=== PATIENT | female | born 1940 | race Caucasian/White ===

== ENCOUNTER 2018-03-10 21:31 | Observation (INO) ==
[2018-03-11 04:37] LABS: Hematocrit 29.8 % (35.3-44.9); Hemoglobin 9.4 g/dL (11.5-15.4); Mean Corpuscular HGB Conc 31.5 g/dL (31.6-35.5); Mean Corpuscular Hemoglobin 32.1 pg (28.0-33.3); Mean Corpuscular Volume 101.7 fL (83.0-100.0); Mean Platelet Volume 11.8 fL (9.4-12.4); Platelet Count 125 K/mcL (140-400); Red Blood Count 2.93 M/mcL (3.82-4.97); Red Cell Distribution Width 14.8 % (11.5-14.5)
[2018-03-11 04:54] LABS: Albumin 3.4 g/dL (3.5-5.7); Albumin/Globulin Ratio 1.1 (1.1-2.2); Bilirubin,Total 0.9 mg/dL (0.3-1.0); Calcium 8.9 mg/dL (8.6-10.3); Globulin 3.1 g/dL (2.4-3.5); Potassium 4.9 mEq/L (3.5-5.1); Total Protein 6.5 g/dL (6.4-8.9)
[2018-03-11] MEDS ORDERED: Naloxone 0.4 MG/ML INJ IVP PRN (06:33)
[2018-03-11] MEDS ORDERED: *HR* Dextrose 50 % in Water (Syg) 50 ML SYRINGE IVP PRN (06:38)
[2018-03-11] MEDS ORDERED: Dextrose Gel 15 GM/37.5 ML TUBE PO PRN ×2 (06:38)
[2018-03-11] MEDS ORDERED: D5% in Water 1,000 ML IVC PRN (06:38)
[2018-03-11 06:59] LABS: Phosphorous 5.3 mg/dL (2.7-4.5)
--- NOTE | 2018-03-11 08:54 | Internal Med History&Physical ---
Date of Encounter: 03/11/18 Time of Encounter: 05:23 Internal Medicine - H&P: HPI Chief complaint: UTI, ESRD Admitted From: Emergency Dept Plans for Post Hospital Care: Home History of present illness: Ms. Villavicencio is a 77 year old female Patient presented to the [facility] with chills and feeling ill. She had been told that if she ever felt this way that she should come to the ER to be evaluated. Her symptoms started in the early afternoon, and did not improve. She has had similar symptoms when she has UTIs, so she wanted to be evaluated. In the ER she was noted to have a temperature of 101.2, patient's white count was elevated to 13.0, hemoglobin was 10.1. BMP showed elevated blood sugar of 209. Troponin was also elevated at 0.08.Chest x-ray showed possible trace bilateral pleural effusions. UA showed bacteria, small leukocyte esterase, negative nitrites. Recent urine culture from 01/22/18 grew out klebsiella pneumoniae. EKG showed Afib with RVR, rate of 121. No ST changes noted. She was started on ceftriaxone, given a dose of tylenol and transferred to [facility] as [facility] does not have a dialysis unit. Upon my evaluation, patient states that she feels better now. She is on dialysis with upper left arm fistula access. She has had UTIs in the past, and still makes a small amount of urine. She denies nasuea, vomiting, chest pain, abdominal pain, diarrhea and constipation. She was noted to be in Afib at [facility] but this improved upon arrival here. Past Med Surg Social Fam HX - Past Medical History Medical history: arthritis, atrial fibrillation, cardiomyopathy, CHF, COPD, diabetes, dialysis, hyperlipidemia, hypertension, myocardial infarction, renal disease, thyroid disease Additional medical history: WEARS HOME 02 AT 2LPM VIA NC CONTINUOUS, , DIALYSIS -- , ALSO TO BE FLUID RESTRICTION 80UNCES OF FLUID DAILY Psychiatric history: no psych history - Past Surgical History Surgical History: angioplasty/stent, breast surgery, hysterectomy, other Additional surgical history: cyst removed left breast. left arm shunt - Social History Smoking Status: Never smoker Smokeless Tobacco Status: No Alcohol use: none Drug use: none - Family History Father Living Status: Hx Family Cardiac Disorders: Yes Hx Family Endocrine Disorder: Yes Mother Living Status: Hx Family Endocrine Disorder: Yes Internal Medicine - H&P: Meds Renal Vitamin [Renal Caps Softgel] 1 mg PO DAILY 12/04/14 [History] Sodium Bicarbonate 650 mg PO DAILY 10/03/16 [History] Vitamin B Complex Vit C No.4 [Super B Complex] 1 tab PO DAILY 10/03/16 [History] Promethazine [Phenergan] 12.5 mg PO Q6HR PRN 11/17/16 [History] Allopurinol [Zyloprim 100 MG] 100 mg PO DAILY 08/10/17 [History] Atorvastatin [Lipitor] 40 mg PO HS 08/10/17 [History] Folic Acid 0.8 mg PO DAILY 08/10/17 [History] Insulin DETEMIR [Levemir] 10 unit SQ DAILY 08/10/17 [History] Levothyroxine Sodium [Levoxyl] 100 mcg PO DAILY 08/10/17 [History] Pantoprazole Sodium [Protonix] 40 mg PO DAILY 08/10/17 [History] Aspirin Enteric Coated [Aspirin EC] 81 mg PO DAILY #30 tablet.dr 08/15/17 [Rx] Lidocaine Patch [Lidoderm 5% patch] 1 each TP DAILY #15 adh..patch 08/15/17 [Rx] Ondansetron HCl [Zofran] 4 mg PO Q8HR PRN #15 tablet 08/15/17 [Rx] Apixaban [Eliquis] 2.5 mg PO BID 01/22/18 [History] Allergy/AdvReac Type Severity Reaction Status Date / Time Amoxicillin [From Augmentin] AdvReac Vomiting Verified 03/10/18 19:50 clavulanic acid AdvReac Vomiting Verified 03/10/18 19:50 [From Augmentin] diphenhydramine AdvReac Hypotension Verified 03/10/18 21:31 [From Benadryl] All Systems PM: A 10-system review of systems was performed and is negative for pertinent find ings except as documented above in the HPI. - Constitutional Vitals: Temp Pulse Resp BP Pulse Ox 98.1 F 90 16 97/44 96 03/11/18 06:43 03/11/18 06:43 03/11/18 06:43 03/11/18 06:43 03/11/18 06:43 General appearance: Present: cooperative, A&O X 3, pleasant, no acute distress, answers questions appropriately Exam: As above - Head Head exam: Present: normal inspection - Eye Eye exam: Present: EOMI, normal appearance - Respiratory Respiratory exam: Present: CTAB. Absent: respiratory distress, wheezes - Cardiovascular Cardiovascular exam: Present: RRR. Absent: diastolic murmur, systolic murmur - GI/Abdominal GI/Abdominal exam: Present: normal bowel sounds, soft. Absent: tenderness - Extremities Exam Extremities exam: Present: pedal edema, warm, radial pulses palpable and symmetrical. Absent: calf tenderness, tenderness Additional comments: 1-2+ pitting edema bilaterally. - Back Exam Back exam: Present: CVA tenderness (L), CVA tenderness (R) - Neurological Exam Neurological exam: Present: no focal deficits, strengths equal and symetr throughout. Absent: motor sensory deficit, facial droop, speech deficit - Skin Skin exam: Present: dry, normal color, warm Internal Med - H&P Results - Labs CBC & Chem 7: 03/11/18 03:55 03/11/18 03:55 Labs: Short CBC 03/11/18 Range/Units 03:55 WBC 12.9 H (4.3-11.1) K/mcL Hgb 9.4 L (11.5-15.4) g/dL Hct 29.8 L (35.3-44.9) % Plt Count 125 L (140-400) K/mcL BMP 03/11/18 03:55 Sodium 135 L Potassium 4.9 Chloride 97 L Carbon Dioxide 26 BUN 35 H Creatinine 5.82 H Glucose 227 H Calcium 8.9 Cardiac Enzymes 03/11/18 Range/Units 03:55 Troponin I 0.08 H* (< 0.04) ng/mL Liver Function 03/11/18 Range/Units 03:55 Total Bilirubin 0.9 (0.3-1.0) mg/dL AST 32 (13-39) Units/L ALT 19 (7-52) Units/L Alkaline Phosphatase 159 H (34-104) Units/L Albumin 3.4 L (3.5-5.7) g/dL - Assessment and plan (1) Urinary tract infection Current Visit: No Status: Acute Assessment and plan: Some bacteria noted on UA but negative nitrites and small LEs. Patient does have bilateral CVA tenderness, and presents similar to her UTIs in the past. Follow up urine culture Continue antibiotics. Monitor for worsening signs of infection, fever and tachycardia resolved by arrival. Qualifiers: Urinary tract infection type: acute cystitis Hematuria presence: without hematuria Qualified Code(s): N30.00 - Acute cystitis without hematuria (2) Diabetes Current Visit: No Status: Chronic Assessment and plan: Low dose sliding scale insulin Monitor sugars with meals and at night Diabetic and renal diet Qualifiers: Diabetes mellitus type: type 2 Diabetes mellitus terminal block assembler insulin use: with terminal block assembler use Diabetes mellitus complication status: with kidney complications Diabetes mellitus complication detail: with chronic kidney disease Chronic kidney disease stage: on chronic dialysis Qualified Code(s): E11.22 - Type 2 diabetes mellitus with diabetic chronic kidney disease; N18.6 - End stage renal disease; Z79.4 - intermediate (current) use of insulin; Z99.2 - Dependence on renal dialysis (3) End-stage renal disease Current Visit: No Status: Chronic Assessment and plan: Nephrology consult to continue dialysis (4) DVT prophylaxis Current Visit: Yes Status: Acute Assessment and plan: SCDs - Time Spent With Patient Total time spent is greater than 50% in coordination of care (as documented) at patient's floor/unit and/or counseling patient: Greater than 35 minutes
[2018-03-11] MEDS ORDERED: Ondansetron 4 MG/2 ML VIAL IVP PRN (10:03)
[2018-03-11] MEDS: cefTRIAXone 1,000 MG in Water for inj. (sterile) 20 ML 10 ML IVP SCH (10:05)
[2018-03-11] MEDS: Insulin LISPRO 300 UNITS/3 ML VIAL SQ SCH ×4 (10:08→20:17)
--- NOTE | 2018-03-11 10:43 | Nephrology Consult Note ---
Date of Encounter: 03/11/18 Time of Encounter: 09:50 Assessment and Plan (1) End-stage renal disease Current Visit: No Status: Chronic Hx of ESRD on HD every MWF. Last HD was on Monday. I recommend no extra dialysis today (Monday), and to arrange HD for her in the AM. I will place dialysis orders on Monday, and my colleague Dr. Maher will be on-service starting at 0800. I will be happy to help consult on this pt, as her primary nephrology has no rou nding privileges at [facility]. Thank you. (2) Nausea Current Visit: Yes Status: Chronic She asked me to order her Zofran and the "purple pill" (Nexium or equivalent). History of Present Illness - Reason for Consult Consult date: 03/11/18 end stage renal disease Requesting physician: Ranulfo Amor - Chief Complaint She said she was "shaky" - History of Present Illness 77 y/o very pleasant 77 y/o WF with a pmh of ESRD on HD MWF and et al who presented with feelings of fatigue that she described as "shaky." Nephrology was consulted because she is an ESRD pt. She said she has been on dialysis for 2-3 years, at the private unit [facility] She said her prior supervisor [employer] retired and that she is not sure of who the current supervisor [employer], but since her new nephrology appears to have no rounding privileges at [facility], the [facility] group was consulted. She denied F/C/V/D, but did affirm some mild nausea and asked for the "purple pill." She said she completed her last dialysis on Monday. She is not sure of her dry weight or other dialysis details and these medical records are not immediately available to me. Past Med Surg Social Fam HX - Past Medical History Medical history: arthritis, atrial fibrillation, cardiomyopathy, CHF, COPD, diabetes, dialysis, hyperlipidemia, hypertension, myocardial infarction, renal disease, thyroid disease Additional medical history: WEARS HOME 02 AT 2LPM VIA NC CONTINUOUS, , DIALYSIS M-W- , ALSO TO BE FLUID RESTRICTION 80UNCES OF FLUID DAILY Psychiatric history: no psych history - Past Surgical History Surgical History: angioplasty/stent, breast surgery, hysterectomy, other Additional surgical history: cyst removed left breast. left arm shunt - Social History Smoking Status: Never smoker Smokeless Tobacco Status: No Alcohol use: none Drug use: none - Family History Father Living Status: Hx Family Cardiac Disorders: Yes Hx Family Endocrine Disorder: Yes Mother Living Status: Hx Family Endocrine Disorder: Yes Medications and Allergies Renal Vitamin [Renal Caps Softgel] 1 mg PO DAILY 12/04/14 [History] Sodium Bicarbonate 650 mg PO DAILY 10/03/16 [History] Vitamin B Complex Vit C No.4 [Super B Complex] 1 tab PO DAILY 10/03/16 [History] Promethazine [Phenergan] 12.5 mg PO Q6HR PRN 11/17/16 [History] Allopurinol [Zyloprim 100 MG] 100 mg PO DAILY 08/10/17 [History] Atorvastatin [Lipitor] 40 mg PO HS 08/10/17 [History] Folic Acid 0.8 mg PO DAILY 08/10/17 [History] Insulin DETEMIR [Levemir] 10 unit SQ DAILY 08/10/17 [History] Levothyroxine Sodium [Levoxyl] 100 mcg PO DAILY 08/10/17 [History] Pantoprazole Sodium [Protonix] 40 mg PO DAILY 08/10/17 [History] Aspirin Enteric Coated [Aspirin EC] 81 mg PO DAILY #30 tablet.dr 08/15/17 [Rx] Lidocaine Patch [Lidoderm 5% patch] 1 each TP DAILY #15 adh..patch 08/15/17 [Rx] Ondansetron HCl [Zofran] 4 mg PO Q8HR PRN #15 tablet 08/15/17 [Rx] Apixaban [Eliquis] 2.5 mg PO BID 01/22/18 [History] Allergy/AdvReac Type Severity Reaction Status Date / Time Amoxicillin [From Augmentin] AdvReac Vomiting Verified 03/10/18 19:50 clavulanic acid AdvReac Vomiting Verified 03/10/18 19:50 [From Augmentin] diphenhydramine AdvReac Hypotension Verified 03/10/18 21:31 [From Benadryl] Review of Systems All Systems: reviewed and no additional remarkable complaints except as stated Exam - Vital Signs Vital signs: Initial Vital Signs Temp Pulse Resp BP Pulse Ox 98.3 F 110 16 121/78 95 03/10/18 23:00 03/10/18 23:00 03/10/18 23:00 03/10/18 23:00 03/10/18 23:00 Vital Signs - Last 8 Hours Temp Pulse Resp BP Pulse Ox 03/11/18 06:43 98.1 F 90 16 97/44 96 03/11/18 04:00 98.4 F 95 16 88/50 94 Intake and Output 03/10/18 03/11/18 03/11/18 23:59 07:59 15:59 Other: Stool Size Small Stool Consistency soft Stool Color Brown # Voids 1 # Bowel Movement Diapers 1 Weight 106.1 kg Blood Glucose* 175 - General Appearance General appearance: well-developed, well-nourished, appears started age, obese EENT: ATNC, PERRL, mucous membranes moist Neck: supple Respiratory: clear Cardiology: no edema, irregular rhythm, normal S1, normal S2 - Dialysis Access Dialysis Vascular Access: Arteriovenous Fistula (left AVF) thrill: Yes bruit: Yes Gastrointestinal: normoactive bowel sounds, no tenderness, no guarding Integumentary: no rash, warm and dry Neurologic: no focal deficit, no asterixis, alert and oriented x3 Musculoskeletal: no deformities, no erythema Psychiatric: mood/affect appropriate, cooperative Results - Lab Results 03/13/18 03:43 03/13/18 03:43 Most recent lab results Calcium 8.9 mg/dL (8.6-10.3) 03/11/18 03:55 Phosphorus 5.3 mg/dL (2.7-4.5) H 03/11/18 03:55 Consult Discharge Plan - Plan Referrals: Isabel Morales [Primary Care Provider] - 04/03/18 4:00 pm (Please follow up as schedule...)
[2018-03-11] MEDS ORDERED: Promethazine 12.5 MG in 0.9 % Sodium Chloride 50 ML IVPB PRN (13:51)
--- NOTE | 2018-03-11 14:21 | Event Note ---
Date of Encounter: 03/11/18 Time of Encounter: 14:21 I have seen and evaluated the patient at bedside. Patient reports that she is feeling nauseated, denies chest pain, abdominal pain or shortness of breath. Physical exam: Vitals: Reviewed. General: Alert and oriented x4. In mild distress due to nausea. Skin:Normal color, no rash, no lesions. HEENT: EOM, pupils equal, round and reactive. Cardiovascular: Irregularly, irregular, Normal S1 & S2, no rubs, murmurs or gallops. Lungs: mild crackles at the bases b/l, no wheezes. Abdomen: Obese, Soft, non-tender, no rigidity. Extremities:No deformity, no edema. left upper extr HD fistula. Neurological: Normal cognition and motor skills. Rest of the physical exam is non contributory Assessment and Plan: 1. Hypotension possible due to sepsis 2. UTI 3. A.Fib 4. [place] zone troponin 5. ESRD 6. CHF 7. COPD 8. HTN 9. HLD 10. Hypothyroidism Plan: patient on IV antibiotics will resume home medications will continue to monitor ondansentron 4mg/IV Q4HR scheduled for nausea Patient needs close BP monitoring
[2018-03-11] MEDS ORDERED: *HR* Promethazine 25 MG/ML VIAL IVP PRN (15:23)
[2018-03-11] MEDS: Ondansetron 4 MG/2 ML VIAL IVP SCH ×2 (17:38→23:47)
[2018-03-11] MEDS: Apixaban 5 MG TABLET PO SCH (20:19)
[2018-03-12 03:11] LABS: Basophils # 0.1 K/mcL (0.0-0.2); Basophils % 0.8 %; Eosinophils # 0.5 K/mcL (0.0-0.6); Eosinophils % 7.3 %; Hematocrit 30.8 % (35.3-44.9); Hemoglobin 9.7 g/dL (11.5-15.4); Immature Granulocytes % 0.3 % (0-4); Lymphocytes # 0.6 K/mcL (0.6-4.6); Lymphocytes % 8.5 %; Mean Corpuscular HGB Conc 31.5 g/dL (31.6-35.5); Mean Corpuscular Hemoglobin 31.7 pg (28.0-33.3); Mean Corpuscular Volume 100.7 fL (83.0-100.0); Mean Platelet Volume 11.6 fL (9.4-12.4); Monocytes # 0.8 K/mcL (0.0-1.3); Monocytes % 10.6 %; Neutrophils # 5.3 K/mcL (1.6-8.9); Platelet Count 117 K/mcL (140-400); Red Blood Count 3.06 M/mcL (3.82-4.97); Segmented Neutrophils % 72.5 %
[2018-03-12 03:28] LABS: Calcium 8.9 mg/dL (8.6-10.3); Phosphorous 6.6 mg/dL (2.7-4.5); Potassium 5.4 mEq/L (3.5-5.1)
[2018-03-12] MEDS: Ondansetron 4 MG/2 ML VIAL IVP SCH ×4 (05:12→23:56)
[2018-03-12] MEDS ORDERED: 0.9 % Sodium Chloride 250 ML IVC PRN (05:24)
[2018-03-12] MEDS ORDERED: 0.9 % Sodium Chloride 1,000 ML PRIME SCH (05:30)
[2018-03-12] MEDS: Apixaban 5 MG TABLET PO SCH ×2 (07:55→19:54)
[2018-03-12] MEDS: Aspirin Enteric Coated 81 MG Tablet PO SCH (07:55)
[2018-03-12] MEDS: cefTRIAXone 1,000 MG in Water for inj. (sterile) 20 ML 10 ML IVP SCH (07:56)
[2018-03-12] MEDS: Insulin LISPRO 300 UNITS/3 ML VIAL SQ SCH ×4 (08:00→19:54)
[2018-03-12 08:50] LABS: Hepatitis B Surface Antibody 0.46 mIU/mL; Hepatitis B Surface Antigen Nonreactive (Nonreactive)
--- NOTE | 2018-03-12 10:10 | Nephrology Progress Note ---
Addendum entered and electronically signed by Seamus Maher MD 03/13/18 06:21: I examined this patient and discussed the medical decision-making with DONN Castellon 03/12/2018. I agree with the documented findings, disposition and treatment plan as described except to the extent set forth below. Patient was seen on dialysis. Original Note: Date of Encounter: 03/12/18 Time of Encounter: 10:08 - Assessment and Plan (1) End-stage renal disease Current Visit: No Status: Chronic HD MWF. HD planned for today. Strict I/O Avoid nephrotoxins and renal dose all medications. Renal diet. (2) Urinary tract infection Current Visit: No Status: Acute Spoke with primary, if urine culture finalizes today, she can be d/alondra. If not await results. Per primary. Qualifiers: Urinary tract infection type: acute cystitis Hematuria presence: without hematuria Qualified Code(s): N30.00 - Acute cystitis without hematuria (3) Nausea Current Visit: Yes Status: Chronic Appears resolved. Subjective Principal diagnosis: fever, UTI, Tachycardia Interval history: Pt seen and examined, doing well. Denies chest pain, admits to feeling short of breath, on 2 Liters O2 currently. Denies nausea, vomiting,diarrhea. Objective - Vital Signs Vital signs: Vital Signs Temp Pulse Resp BP Pulse Ox 03/12/18 06:43 97.6 F 85 16 121/53 99 03/12/18 05:23 97.8 F 91 18 135/76 98 03/11/18 23:51 98.7 F 86 16 132/76 98 03/11/18 20:37 99 03/11/18 19:16 97.6 F 99 16 119/50 98 03/11/18 15:07 98.9 F 93 16 107/61 94 03/11/18 10:51 97.8 F 86 16 109/51 100 Intake and Output 03/11/18 03/12/18 03/12/18 23:59 07:59 15:59 Intake Total 360 / 360 Balance 360 / 360 Intake: Oral 360 / 360 Other: Meal Breakfast Percent of Meal Consumed 100% Weight 105.7 kg Blood Glucose* 178 124 - General Appearance General appearance: Present: well-developed, well-nourished EENT: Present: ATNC, hearing intact, vision intact Neck: Present: supple Respiratory: Present: clear Cardiology: Present: edema (Non pitting generalized edema noted to bilat lower extremities.), normal S1, normal S2 Dialysis Vascular Access: Arteriovenous Fistula thrill: Yes bruit: Yes Gastrointestinal: Present: normoactive bowel sounds, no tenderness, no guarding Integumentary: Present: no rash, warm and dry Additional Comments: Bilat lower extremities appear to have several old and new abrasions in different stages of healing. Pt denies itching. Neurologic: Present: alert and oriented x3 Psychiatric: Present: mood/affect appropriate, cooperative - Lab 03/12/18 02:48 03/12/18 02:48 Most recent lab results Calcium 8.9 mg/dL (8.6-10.3) 03/12/18 02:48 Phosphorus 6.6 mg/dL (2.7-4.5) H 03/12/18 02:48 Consult Discharge Plan - Plan Referrals: Isabel Morales [Primary Care Provider] - 04/03/18 4:00 pm (Please follow up as schedule...)
--- NOTE | 2018-03-12 11:03 | Internal Med Progress Note ---
Hospitalist Progress Note - Encounter Date of Encounter: 03/12/18 Time of Encounter: 10:59 - Subjective Interval History: I have seen and evaluated the patient at bedside. She reports that she is feeling better today, her nausea has improved, and she has been tolerating oral diet appropriately. Reports that the suprapubic discomfort has subsided, denies nausea, vomiting or diarrhea. No chest pain, but reports feeling slightly short of breath. - Exam Vitals: Temp Pulse Resp BP Pulse Ox 97.6 F 85 16 121/53 99 03/12/18 06:43 03/12/18 06:43 03/12/18 06:43 03/12/18 06:43 03/12/18 06:43 Exam: Vitals: Reviewed. General: Alert and oriented x4. In no acute distress. Skin:Normal color, no rash, no lesions. Cardiovascular: Irregularly, irregular, Normal S1 & S2, no rubs, murmurs or gallops. Lungs: Clear to auscultation bilaterally b/l, no wheezes. Abdomen: Obese, Soft, non-tender, no rigidity. Extremities:No edema. left upper extr HD fistula. Neurological: Normal cognition. Rest of the physical exam is non contributory - Assessment and Plan (1) Urinary tract infection Current Visit: No Status: Acute Assessment and Plan: Patient suprapubic discomfort is improving. Urine culture: growing gram positive rods, pending sensitivity and specificity. Blood cultures: No growth, pending final report continue ceftriaxone 1 g IV daily. (2) Nausea Current Visit: Yes Status: Chronic Assessment and Plan: Continue ondansetron 4 mg IV every 6 hours when necessary, and promethazine 12.5 mg IV every 6 hours when necessary. Patient would benefit from an outpatient gastric emptying study. (3) A-fib Current Visit: No Status: Chronic Assessment and Plan: Patient had an episode of A. fib and RVR before presenting to the hospital. Rate has been controlled. Continue apixaban 2.5 mg by mouth twice a day, due to high CHADSVASC score Patient is not on medication for rate control. We will continue to monitor. (4) Anemia Current Visit: No Status: Chronic Assessment and Plan: H&H has been a stable. No signs of active bleeding. Continue Epoetin 1000 units SQ 3xw. (5) Diabetes Current Visit: No Status: Chronic Assessment and Plan: Blood sugar has been well controlled. Continue carb controlled diet, and lispro low-dose sliding scale. (6) Diastolic CHF, chronic Current Visit: No Status: Chronic Assessment and Plan: Not an acute exacerbation. Patient is Euvolemic. Continue fluid restriction to 1.5 L a day, and daily weight. Strict intake and output. (7) End-stage renal disease Current Visit: No Status: Chronic Assessment and Plan: Patient is scheduled for renal replacement therapy today. Nephrology recommendation appreciated. (8) Hypertension Current Visit: No Status: Chronic Assessment and Plan: Blood pressure has been well controlled. Patient off antihypertensive medication. We will monitor and adjust coverage accordingly. (9) Hypothyroidism Current Visit: No Status: Chronic Assessment and Plan: Continue levothyroxine 100 mcg/PO daily DVT Prophylaxis: Ration is on Apixaban due to A.fib. - Summary of Assessment and Plan Summary of Assessment and Plan: Due to patient recurrent UTI, will keep patient in the hospital until urine culture specificity and sensitivity is resulted to adjusted outpatient antibiotics coverage. Potential discharge tomorrow. - Time Spent with Patient Total time spent is greater than 50% in coordination of care (as documented) at patient's floor/unit and/or counseling patient: Greater than 35 minutes (40) Plan of Care Discussed with: patient (and the nurse.) Internal Medicine: Result - Labs CBC & Chem 7: 03/12/18 02:48 03/12/18 02:48 Labs: Short CBC 03/12/18 Range/Units 02:48 WBC 7.3 (4.3-11.1) K/mcL Hgb 9.7 L (11.5-15.4) g/dL Hct 30.8 L (35.3-44.9) % Plt Count 117 L (140-400) K/mcL Neutrophils # 5.3 (1.6-8.9) K/mcL BMP 03/12/18 02:48 Sodium 133 L Potassium 5.4 H Chloride 96 L Carbon Dioxide 24 BUN 46 H Creatinine 6.94 H Glucose 144 H Calcium 8.9 Consult Discharge Plan - Plan Referrals: Isabel Morales [Primary Care Provider] - (1) Urinary tract infection Qualifiers: Urinary tract infection type: acute cystitis Hematuria presence: without hematuria Qualified Code(s): N30.00 - Acute cystitis without hematuria (3) A-fib Qualifiers: Atrial fibrillation type: paroxysmal Qualified Code(s): I48.0 - Paroxysmal atrial fibrillation (4) Anemia Qualifiers: Anemia type: due to chronic kidney disease Chronic kidney disease stage: on chronic dialysis Qualified Code(s): N18.6 - End stage renal disease; D63.1 - Anemia in chronic kidney disease; Z99.2 - Dependence on renal dialysis (5) Diabetes Qualifiers: Diabetes mellitus type: type 2 Diabetes mellitus meterman insulin use: with meterman use Diabetes mellitus complication status: with kidney complications Diabetes mellitus complication detail: with chronic kidney disease Chronic kidney disease stage: on chronic dialysis Qualified Code(s): E11.22 - Type 2 diabetes mellitus with diabetic chronic kidney disease; N18.6 - End stage renal disease; Z79.4 - penitentiary (current) use of insulin; Z99.2 - Dependence on renal dialysis (8) Hypertension Qualifiers: Hypertension type: essential hypertension Qualified Code(s): I10 - Essential (primary) hypertension (9) Hypothyroidism Qualifiers: Hypothyroidism type: unspecified Qualified Code(s): E03.9 - Hypothyroidism, unspecified
[2018-03-12] MEDS ORDERED: hydrOXYzine pamoate 25 MG CAPSULE PO ONE (14:38)
[2018-03-12 18:07] LABS: Bilirubin,Urine Negative (Negative); Blood,Urine Trace (Negative); Clarity,Urine Clear (Clear); Color,Urine Yellow (Yellow); Glucose,Urine (UA) Normal (Normal); Ketones,Urine Negative (Negative); Leukocyte Esterase,Urine Trace (Negative); Nitrite,Urine Negative (Negative); PH,Urine 7.5 pH Units (5.0-8.0); Protein,Urine 100 mg/dL (Neg-Trace); Specific Gravity,Urine 1.015 (1.010-1.025); Urobilinogen,Urine Normal (Normal)
[2018-03-12 18:16] LABS: Bacteria,Urine None Seen per hpf (None-Few); Hyaline Casts,Urine None Seen per lpf (None-Few); RBC,Urine 0-3 per hpf (0-3); Squamous Epithelial Cell,Urine Many per lpf (None-Few); WBC,Urine 15-30 per hpf (0-3)
[2018-03-13 04:30] LABS: Hematocrit 29.5 % (35.3-44.9); Hemoglobin 9.1 g/dL (11.5-15.4); Mean Corpuscular HGB Conc 30.8 g/dL (31.6-35.5); Mean Corpuscular Hemoglobin 31.5 pg (28.0-33.3); Mean Corpuscular Volume 102.1 fL (83.0-100.0); Mean Platelet Volume 11.9 fL (9.4-12.4); Platelet Count 110 K/mcL (140-400); Red Blood Count 2.89 M/mcL (3.82-4.97); Red Cell Distribution Width 15.3 % (11.5-14.5)
[2018-03-13 04:46] LABS: Calcium 8.3 mg/dL (8.6-10.3); Potassium 4.6 mEq/L (3.5-5.1)
[2018-03-13] MEDS: Ondansetron 4 MG/2 ML VIAL IVP SCH ×2 (06:13→11:57)
--- NOTE | 2018-03-13 07:48 | Nephrology Progress Note ---
Date of Encounter: 03/13/18 Time of Encounter: 07:45 - Assessment and Plan (1) End-stage renal disease Current Visit: No Status: Chronic HD MWF. HD completed yesterady. Strict I/O Avoid nephrotoxins and renal dose all medications. Renal diet. (2) Urinary tract infection Current Visit: No Status: Acute Awaiting final culture report on urine. Qualifiers: Urinary tract infection type: acute cystitis Hematuria presence: without hematuria Qualified Code(s): N30.00 - Acute cystitis without hematuria (3) Nausea Current Visit: Yes Status: Chronic Appears resolved. (4) Anemia Current Visit: No Status: Chronic Goal Hgb is 10-11. Hgb is 9.1 today, stable. Qualifiers: Anemia type: due to chronic kidney disease Chronic kidney disease stage: on chronic dialysis Qualified Code(s): N18.6 - End stage renal disease; D63.1 - Anemia in chronic kidney disease; Z99.2 - Dependence on renal dialysis Subjective Principal diagnosis: fever, UTI, Tachycardia Interval history: Pt seen and examined, doing well. Denies chest pain or shortness of breath. Is sitting up on side of bed, states she is feeling good and ready to go home. Objective - Vital Signs Vital signs: Vital Signs Temp Pulse Resp BP Pulse Ox 03/13/18 06:46 98.1 F 83 16 105/48 91 03/13/18 05:31 98.5 F 82 17 107/64 95 03/12/18 23:19 97.8 F 100 16 137/75 95 03/12/18 20:04 95 03/12/18 19:45 98.6 F 100 17 94/44 100 03/12/18 15:42 97.6 F 88 16 99/59 98 03/12/18 15:30 97.7 F 18 98/69 03/12/18 15:15 103/52 03/12/18 15:00 115/62 03/12/18 14:45 100/60 03/12/18 14:30 110/50 03/12/18 14:15 94/53 03/12/18 14:00 106/54 03/12/18 13:45 99/49 03/12/18 13:30 102/56 03/12/18 13:15 106/53 03/12/18 13:00 110/50 03/12/18 12:45 109/52 03/12/18 12:30 100/48 03/12/18 12:15 97.2 F L 18 100/48 03/12/18 11:52 97.6 F 86 16 138/57 92 Intake and Output 03/12/18 03/12/18 03/13/18 15:59 23:59 07:59 Intake Total 960 / 960 240 / 240 Output Total 4600 / 4600 Balance -3640 / -3640 240 / 240 Intake: Oral 360 / 360 240 / 240 Intake, Rinseback and Flushes 600 / 600 Output: Total Dialysis (HD) Output 4600 / 4600 Other: Meal Breakfast Dinner Percent of Meal Consumed 100% 100% Stool Size Moderate Stool Consistency soft formed Stool Color Brown # Voids 1 # Bowel Movements 1 Weight 105.2 kg Blood Glucose* 145 272 150 Hemodialysis Net Fluid Removed 4000 (mL) Patient Weight 03/13/18 23:59 Weight 105.2 kg - General Appearance General appearance: Present: well-developed, well-nourished EENT: Present: ATNC, hearing intact, vision intact Neck: Present: supple Respiratory: Present: clear Cardiology: Present: edema (Non pitting edema noted to bilat lower extremities. ), normal S1, normal S2 Dialysis Vascular Access: Arteriovenous Fistula thrill: Yes bruit: Yes Gastrointestinal: Present: normoactive bowel sounds, no tenderness, no guarding Integumentary: Present: no rash, warm and dry Neurologic: Present: alert and oriented x3 Psychiatric: Present: mood/affect appropriate, cooperative - Lab 03/13/18 03:43 03/13/18 03:43 Most recent lab results Calcium 8.3 mg/dL (8.6-10.3) L 03/13/18 03:43 Phosphorus 6.6 mg/dL (2.7-4.5) H 03/12/18 02:48 Consult Discharge Plan - Plan Referrals: Isabel Morales [Primary Care Provider] - 04/03/18 4:00 pm (Please follow up as schedule...)
[2018-03-13] MEDS: Apixaban 5 MG TABLET PO SCH (08:10)
[2018-03-13] MEDS: cefTRIAXone 1,000 MG in Water for inj. (sterile) 20 ML 10 ML IVP SCH (08:11)
[2018-03-13] MEDS: Aspirin Enteric Coated 81 MG Tablet PO SCH (08:11)
[2018-03-13] MEDS: Insulin LISPRO 300 UNITS/3 ML VIAL SQ SCH ×2 (08:12→11:57)
[2018-03-13 11:33] VITALS: BP 123/60
--- NOTE | 2018-03-13 14:16 | Discharge Summary ---
- NOTES TO OUTPATIENT PROVIDER Notes to Outpatient Provider: none Orders not resulted at time of discharge: Pending orders 03/14/18 04:00 BMP [Basic Metabolic Panel] AM 0400 Complete Blood Count w/o Diff [HEME] AM 0400 03/15/18 04:00 BMP [Basic Metabolic Panel] AM 0400 Complete Blood Count w/o Diff [HEME] AM 0400 03/16/18 04:00 BMP [Basic Metabolic Panel] AM 0400 Complete Blood Count w/o Diff [HEME] AM 0400 03/17/18 04:00 BMP [Basic Metabolic Panel] AM 0400 Complete Blood Count w/o Diff [HEME] AM 0400 03/18/18 04:00 BMP [Basic Metabolic Panel] AM 0400 Complete Blood Count w/o Diff [HEME] AM 04003/19/18 04:00 BMP [Basic Metabolic Panel] AM 0400 Complete Blood Count w/o Diff [HEME] AM 0400 Date of Encounter: 03/13/18 Time of Encounter: 11:00 - Discharge Diagnosis (1) Hypertension Priority: Secondary Status: Chronic Qualifiers: Hypertension type: essential hypertension Qualified Code(s): I10 - Essential (primary) hypertension (2) Diabetes Priority: Secondary Status: Chronic Qualifiers: Diabetes mellitus type: type 2 Diabetes mellitus alf insulin use: with manager terminal use Diabetes mellitus complication status: with kidney co mplications Diabetes mellitus complication detail: with chronic kidney disease Chronic kidney disease stage: on chronic dialysis Qualified Code(s): E11.22 - Type 2 diabetes mellitus with diabetic chronic kidney disease; N18.6 - End stage renal disease; Z79.4 - halfway (current) use of insulin; Z99.2 - Dependence on renal dialysis (3) A-fib Priority: Secondary Status: Chronic Qualifiers: Atrial fibrillation type: paroxysmal Qualified Code(s): I48.0 - Paroxysmal atrial fibrillation (4) End-stage renal disease Priority: Secondary Status: Chronic (5) Diastolic CHF, chronic Priority: Secondary Status: Chronic (6) Anemia Priority: Secondary Status: Chronic Qualifiers: Anemia type: due to chronic kidney disease Chronic kidney disease stage: on chronic dialysis Qualified Code(s): N18.6 - End stage renal disease; D63.1 - Anemia in chronic kidney disease; Z99.2 - Dependence on renal dialysis (7) Hypothyroidism Priority: Secondary Status: Chronic Qualifiers: Hypothyroidism type: unspecified Qualified Code(s): E03.9 - Hypothyroidism, unspecified (8) Urinary tract infection Priority: Primary Status: Acute Qualifiers: Urinary tract infection type: acute cystitis Hematuria presence: without hematuria Qualified Code(s): N30.00 - Acute cystitis without hematuria (9) Nausea Priority: Secondary Status: Chronic (10) COPD (chronic obstructive pulmonary disease) Priority: Secondary Status: Acute Qualifiers: Emphysema type: unspecified Qualified Code(s): J43.9 - Emphysema, unspecified Hospital course: Patient is a 77-year-old female with past medical history significant for atrial fibrillation, cardiomyopathy, CHF, COPD, diabetes, dialysis, hyperlipidemia, hypertension, myocardial infarction, renal disease and thyroid disease who presented due to not feeling well. In the ER she was noted to have a temperature of 101.2 with a white count was elevated to 13.0. During patients hospital stay his symptoms improved with treatment of UTI with IV ceftriaxone. Patient will be discharged to complete a 4 day course of Cipro and follow up with primary care provider. - Time Spent with Patient Total time spent providing and/or coordinating discharge services: Less than 30 minutes - Discharge Medications Prescriptions: Ciprofloxacin HCl [Cipro] 500 mg PO BID 4 Days #8 tablet Home Medications: Renal Vitamin [Renal Caps Softgel] 1 mg PO DAILY 12/04/14 [History] Sodium Bicarbonate 650 mg PO DAILY 10/03/16 [History] Vitamin B Complex Vit C No.4 [Super B Complex] 1 tab PO DAILY 10/03/16 [History] Promethazine [Phenergan] 12.5 mg PO Q6HR PRN 11/17/16 [History] Allopurinol [Zyloprim 100 MG] 100 mg PO DAILY 08/10/17 [History] Atorvastatin [Lipitor] 40 mg PO HS 08/10/17 [History] Folic Acid 0.8 mg PO DAILY 08/10/17 [History] Insulin DETEMIR [Levemir] 10 unit SQ DAILY 08/10/17 [History] Levothyroxine Sodium [Levoxyl] 100 mcg PO DAILY 08/10/17 [History] Pantoprazole Sodium [Protonix] 40 mg PO DAILY 08/10/17 [History] Aspirin Enteric Coated [Aspirin EC] 81 mg PO DAILY #30 tablet. 08/15/17 [Rx] Lidocaine Patch [Lidoderm 5% patch] 1 each TP DAILY #15 adh..patch 08/15/17 [Rx] Ondansetron HCl [Zofran] 4 mg PO Q8HR PRN #15 tablet 08/15/17 [Rx] Apixaban [Eliquis] 2.5 mg PO BID 01/22/18 [History] Ciprofloxacin HCl [Cipro] 500 mg PO BID 4 Days #8 tablet 03/13/18 [Rx] Allergies/Adverse Reactions: Allergy/AdvReac Type Severity Reaction Status Date / Time Amoxicillin [From Augmentin] AdvReac Vomiting Verified 03/10/18 19:50 clavulanic acid AdvReac Vomiting Verified 03/10/18 19:50 [From Augmentin] diphenhydramine AdvReac Hypotension Verified 03/10/18 21:31 [From Benadryl] Date of admission: 03/10/18 22:45 Primary care physician: Isabel Morales Consults: 03/11/18 06:34 Consult to Nephrology [CONS] Routine Consulting Provider: Kidney Sandra/NISHA/LYNDA/LYN Reason for Consult: End-stage renal disease, dialysis Call Completed: No 03/12/18 05:30 Consult to Dialysis [CONS] ONCE - Constitutional Vitals: Temp Pulse Resp BP Pulse Ox 98.6 F 86 16 123/60 95 03/13/18 11:29 03/13/18 11:29 03/13/18 11:29 03/13/18 11:29 03/13/18 09:58 General appearance: Present: cooperative, A&O X 3, pleasant, no acute distress, answers questions appropriately Exam: Gen.: Nonacute distress, alert and oriented 3 Skin: Normal color - Patient Status Disposition: Home, Self-Care Condition: Good - Discharge Instructions Instructions: Ciprofloxacin (By mouth), Urinary Tract Infection in Women, Tourist Home Keeper (GEN) Follow Up With: Isabel Morales [Primary Care Provider] - 04/03/18 4:00 pm (Please follow up as schedule...)
== END 2018-03-13 14:59 | disposition home or self-care (01) ==
LOC: 2ANU → SUATTDRO 22:45
PROVIDERS: ADMIT Internal Medicine; ATTEND Hospitalist

== ENCOUNTER 2018-04-15 21:39 | Inpatient (IN) ==
--- NOTE | 2018-04-15 22:04 | Emergency Department Note ---
Disposition Clinical Impression: GI bleed Qualifiers: GI bleed type/associated pathology: unspecified gastrointestinal hemorrhage type Qualified Code(s): K92.2 - Gastrointestinal hemorrhage, unspecified Anemia Qualifiers: Anemia type: unspecified type Qualified Code(s): D64.9 - Anemia, unspecified Fatigue Qualifiers: Fatigue type: unspecified Qualified Code(s): R53.83 - Other fatigue Disposition: Admitted As Inpatient Condition: Fair Forms: ED Satisfaction Letter Time of Disposition: 23:13 GI Bleed HPI - General Chief complaint: ED GI Bleed Stated complaint: rectal bleeding Time Seen by Provider: 04/15/18 21:49 Source: patient, family Limitations: no limitations Nursing Notes Reviewed: Yes Vital Signs Reviewed: Yes - History of Present Illness HPI Narrative: 77 yo female with past medical history of diabetes requiring insulin, end-stage renal disease on dialysis, GI bleed, A. fib on Eliquis, and COPD requiring oxygen at home presents to the emergency department after referral from her primary care physician. The patient has been experiencing signs and symptoms concerning for anemia and states that on Monday she had her labs checked and her hemoglobin was 8.3. Her primary care physician wanted her to be admitted at that point for a GI bleed workup as the patient has been noticing bright red blood in her stool for the last 3 weeks. She has also noticed some dark tarry stools. Patient did not want to come to the emergency room at that time so the primary care physician stopped her Eliquis and started her on pantoprazole daily. The patient states that she has not noticed as much blood in her stool since stopping the Eliquis but now she thinks she is constipated. Today she was feeling dizzy and had to increase her home oxygen from 2 L to 2.5 as she was short of breath. She has required a blood transfusion before and states the last time was about a year ago. She denies fevers at home. She does not have any chest or abdominal pain. She feels nauseous at times but has not vomited. She does still make a scarce amount of urine and does not have any burning when she PEs or blood in her urine. She denies diarrhea. She normally has dialysis Monday. - Related Data Home Medications Medication Instructions Recorded Confirmed Renal Vitamin [Renal Caps Softgel] 1 mg PO DAILY 12/04/14 03/10/18 Sodium Bicarbonate 650 mg PO DAILY 10/03/16 03/10/18 Vitamin B Complex Vit C No.4 1 tab PO DAILY 10/03/16 03/10/18 [Super B Complex] Promethazine [Phenergan] 12.5 mg PO Q6HR PRN 11/17/16 03/10/18 Allopurinol [Zyloprim 100 MG] 100 mg PO DAILY 08/10/17 03/10/18 Atorvastatin [Lipitor] 40 mg PO HS 08/10/17 03/10/18 Folic Acid 0.8 mg PO DAILY 08/10/17 03/10/18 Insulin DETEMIR [Levemir] 10 unit SQ DAILY 08/10/17 03/10/18 Levothyroxine Sodium [Levoxyl] 100 mcg PO DAILY 08/10/17 03/10/18 Pantoprazole Sodium [Protonix] 40 mg PO DAILY 08/10/17 03/10/18 Apixaban [Eliquis] 2.5 mg PO BID 01/22/18 03/10/18 Previous Rx's Medication Instructions Recorded Aspirin Enteric Coated [Aspirin EC] 81 mg PO DAILY #30 tablet.dr 08/15/17 Lidocaine Patch [Lidoderm 5% patch] 1 each TP DAILY #15 adh..patch 08/15/17 Ondansetron HCl [Zofran] 4 mg PO Q8HR PRN #15 tablet 08/15/17 Allergies Allergy/AdvReac Type Severity Reaction Status Date / Time Amoxicillin [From Augmentin] AdvReac Vomiting Verified 03/10/18 19:50 clavulanic acid AdvReac Vomiting Verified 03/10/18 19:50 [From Augmentin] diphenhydramine AdvReac Hypotension Verified 03/10/18 21:31 [From Benadryl] All systems ED: reviewed and negative except as stated. Review of Systems: As Per HPI Constitutional: Reports: weakness. Denies: fever, chills Cardiovascular: Reports: dyspnea on exertion. Denies: chest pain, palpitations, edema, syncope Respiratory: Reports: dyspnea. Denies: cough, wheezes, hemoptysis Gastrointestinal: Reports: nausea, melena, hematochezia. Denies: abdominal pain, vomiting, diarrhea, hematemesis Genitourinary: Denies: dysuria Endocrine: Reports: fatigue Past Medical History - Past Medical History Medical history: Reports: arthritis, atrial fibrillation, cardiomyopathy, CHF, COPD, diabetes, dialysis, hyperlipidemia, hypertension, myocardial infarction, renal disease, thyroid disease Surgical history: Reports: angioplasty/stent, breast surgery, hysterectomy, other Psychiatric history: Reports: no psych history GAME AGENT history: Reports: no GAME AGENT history - Social History Smoking Status: Never smoker Smokeless Tobacco Status: No Alcohol use: Reports: none Drug use: Reports: none Physical Exam - General Limitations: no limitations General appearance: alert, in no apparent distress - Head Head exam: atraumatic, normocephalic - Eye Eye exam: Present: normal appearance, PERRL, EOMI - ENT ENT exam: mucous membranes moist - Neck Neck exam: Present: normal inspection. Absent: tenderness, lymphadenopathy - Chest Chest inspection: Present: normal inspection, symmetric chest wall rise - Respiratory Respiratory exam: Present: other (Decreased breath sounds bilaterally). Absent: wheezes - Cardiovascular Cardiovascular exam: Present: tachycardia, irregular rhythm - Abdominal Exam Abdominal exam: Present: soft, Non-Tender. Absent: distention, guarding, rebound, rigidity - Rectal Exam System Engineer present during exam: Yes (Dr. Holt) Rectal exam: Present: normal inspection, normal rectal tone, heme (+) stool. Absent: black stool, bloody stool, fecal impaction, hemorrhoids, mass, tenderness - Extremities Exam Extremities exam: Present: pedal edema - Neurological Exam Neurological exam: Present: alert, oriented X3 - Psychiatric Psychiatric exam: Present: normal affect, normal mood - Skin Skin exam: Present: warm, dry, intact Course Vital Signs Temperature 98.7 F 04/15/18 21:44 Pulse Rate 102 04/15/18 21:44 Respiratory Rate 24 04/15/18 21:44 Blood Pressure 110/69 04/15/18 21:44 O2 Sat by Pulse Oximetry 95 04/15/18 21:44 Temperature 98.7 F 04/15/18 21:44 Pulse Rate 92 04/15/18 22:41 Respiratory Rate 20 04/15/18 22:41 Blood Pressure 111/95 04/15/18 22:41 O2 Sat by Pulse Oximetry 100 04/15/18 22:41 Oxygen Delivery Oxygen Delivery Nasal Cannula GI Bleed - MDM Narrative Medical decision making narrative: This is an ill appearing woman with multiple comorbidities who presents with signs and symptoms concerning for anemia. We will do a CBC, BMP, and stool hemoccult as well as an EKG and CXR. 2230 - hemoglobin at 8.6, which is mild improvement from her stated hemoglobin drawn a week ago. Stool Hemoccult sent to lab at this time. 2240 - stool Hemoccult was positive. All other labs are at the patient's baseline. Awaiting chest x-ray. 2310 - chest x-ray is at the patient's baseline. Her glucose is high at 420 with a low sodium that is likely secondary to the hyperglycemia. The patient normally takes 10 units of NovoLog at night for hyperglycemia so we will supplement this here and have her glucose control continue once she is up on the floor. She has been accepted by Dr. Gomez at this time. - Medical Records Medical records reviewed: Yes I reviewed the patient's medical records. - Lab Data Lab results reviewed: Yes I reviewed the patient's lab results. Result diagrams: 04/15/18 21:50 04/15/18 21:50 Lab Results 04/15/18 04/15/18 04/15/18 Range/Units 21:50 21:50 22:30 WBC 8.7 (4.3-11.1) K/mcL RBC 2.77 L (3.82-4.97) M/mcL Hgb 8.6 L (11.5-15.4) g/dL Hct 27.8 L (35.3-44.9) % MCV 100.4 H (83.0-100.0) fL MCH 31.0 (28.0-33.3) pg MCHC 30.9 L (31.6-35.5) g/dL RDW 18.4 H (11.5-14.5) % Plt Count 158 (140-400) K/mcL MPV 10.9 (9.4-12.4) fL Immature Gran % 0.3 (0-4) % Seg Neutrophils % 79.4 % Lymphocytes % 7.0 % Monocytes % 10.7 % Eosinophils % 2.1 % Basophils % 0.5 % Neutrophils # 6.9 (1.6-8.9) K/mcL Lymphocytes # 0.6 (0.6-4.6) K/mcL Monocytes # 0.9 (0.0-1.3) K/mcL Eosinophils # 0.2 (0.0-0.6) K/mcL Basophils # 0.0 (0.0-0.2) K/mcL Sodium 129 L (136-145) mEq/L Potassium 4.1 (3.5-5.1) mEq/L Chloride 90 L (98-107) mEq/L Carbon Dioxide 27 (23-29) mEq/L BUN 51 H (8-23) mg/dL Creatinine 6.54 H (0.60-1.20) mg/dL Est GFR ( Amer) 7 L (> 60) Est GFR (Non-Af Amer) 6 L (> 60) BUN/Creatinine Ratio 8 (6-26) Glucose 422 H (70-105) mg/dL Calculated Osmolality 300 (280-300) Calcium 8.7 (8.6-10.3) mg/dL Stool Occult Bld Scrn Positive A (Negative) - Radiology Data Radiology results reviewed: Yes I reviewed the patient's radiology results. - EKG Data EKG attestation: Yes I reviewed and interpreted this EKG. EKG results narrative: EKG obtained at 21:57 on 04/15/2018 Heart rate 96 determine, GA interval 170, QRS duration 95, QT 362, QTC 458 Sinus tachycardia with some premature atrial complexes and premature ventricular complexes. No ST segment elevations or depressions. No signs of ischemia. When compared to her previous EKG dated 03/10/2018 she is no longer in A. fib with RVR. No other EKG for comparison.
[2018-04-15 22:11] LABS: Basophils % 0.5 %; Eosinophils # 0.2 K/mcL (0.0-0.6); Eosinophils % 2.1 %; Hematocrit 27.8 % (35.3-44.9); Hemoglobin 8.6 g/dL (11.5-15.4); Immature Granulocytes % 0.3 % (0-4); Lymphocytes # 0.6 K/mcL (0.6-4.6); Mean Corpuscular HGB Conc 30.9 g/dL (31.6-35.5); Mean Corpuscular Volume 100.4 fL (83.0-100.0); Mean Platelet Volume 10.9 fL (9.4-12.4); Monocytes # 0.9 K/mcL (0.0-1.3); Monocytes % 10.7 %; Neutrophils # 6.9 K/mcL (1.6-8.9); Platelet Count 158 K/mcL (140-400); Red Blood Count 2.77 M/mcL (3.82-4.97); Red Cell Distribution Width 18.4 % (11.5-14.5); Segmented Neutrophils % 79.4 %
[2018-04-15 22:31] LABS: Calcium 8.7 mg/dL (8.6-10.3); Potassium 4.1 mEq/L (3.5-5.1)
[2018-04-15] MEDS ORDERED: Insulin LISPRO 300 UNITS/3 ML VIAL SQ ONE (23:15)
--- NOTE | 2018-04-15 23:29 | Emergency Department Note ---
Disposition Clinical Impression: End-stage renal disease GI bleed Qualifiers: GI bleed type/associated pathology: unspecified gastrointestinal hemorrhage type Qualified Code(s): K92.2 - Gastrointestinal hemorrhage, unspecified Anemia Qualifiers: Anemia type: unspecified type Qualified Code(s): D64.9 - Anemia, unspecified Fatigue Qualifiers: Fatigue type: unspecified Qualified Code(s): R53.83 - Other fatigue Diabetes Qualifiers: Diabetes mellitus type: type 2 Diabetes mellitus prison insulin use: with exterminator use Diabetes mellitus complication status: with unspecified complications Qualified Code(s): E11.8 - Type 2 diabetes mellitus with unspecified complications Disposition: Admitted As Inpatient Condition: Fair General Adult HPI - General Chief complaint: ED GI Bleed Stated complaint: rectal bleeding Time Seen by Provider: 04/15/18 21:49 Source: patient, family Limitations: no limitations Nursing Notes Reviewed: Yes Vital Signs Reviewed: Yes - History of Present Illness Pain Scale: 0 - Related Data Home Medications Medication Instructions Recorded Confirmed Renal Vitamin [Renal Caps Softgel] 1 mg PO DAILY 12/04/14 03/10/18 Sodium Bicarbonate 650 mg PO DAILY 10/03/16 03/10/18 Vitamin B Complex Vit C No.4 1 tab PO DAILY 10/03/16 03/10/18 [Super B Complex] Promethazine [Phenergan] 12.5 mg PO Q6HR PRN 11/17/16 03/10/18 Allopurinol [Zyloprim 100 MG] 100 mg PO DAILY 08/10/17 03/10/18 Atorvastatin [Lipitor] 40 mg PO HS 08/10/17 03/10/18 Folic Acid 0.8 mg PO DAILY 08/10/17 03/10/18 Insulin DETEMIR [Levemir] 10 unit SQ DAILY 08/10/17 03/10/18 Levothyroxine Sodium [Levoxyl] 100 mcg PO DAILY 08/10/17 03/10/18 Pantoprazole Sodium [Protonix] 40 mg PO DAILY 08/10/17 03/10/18 Apixaban [Eliquis] 2.5 mg PO BID 01/22/18 03/10/18 Previous Rx's Medication Instructions Recorded Aspirin Enteric Coated [Aspirin EC] 81 mg PO DAILY #30 tablet.dr 08/15/17 Lidocaine Patch [Lidoderm 5% patch] 1 each TP DAILY #15 adh..patch 08/15/17 Ondansetron HCl [Zofran] 4 mg PO Q8HR PRN #15 tablet 08/15/17 Allergies Allergy/AdvReac Type Severity Reaction Status Date / Time Amoxicillin [From Augmentin] AdvReac Vomiting Verified 03/10/18 19:50 clavulanic acid AdvReac Vomiting Verified 03/10/18 19:50 [From Augmentin] diphenhydramine AdvReac Hypotension Verified 03/10/18 21:31 [From Benadryl] Constitutional: Reports: weakness. Denies: fever, chills Cardiovascular: Reports: dyspnea on exertion. Denies: chest pain, palpitations, edema, syncope Respiratory: Reports: dyspnea. Denies: cough, wheezes, hemoptysis Gastrointestinal: Reports: nausea, melena, hematochezia. Denies: abdominal pain, vomiting, diarrhea, hematemesis Genitourinary: Denies: dysuria Endocrine: Reports: fatigue Past Medical History - Past Medical History Medical history: Reports: arthritis, atrial fibrillation, cardiomyopathy, CHF, COPD, diabetes, dialysis, hyperlipidemia, hypertension, myocardial infarction, renal disease, thyroid disease Surgical history: Reports: angioplasty/stent, breast surgery, hysterectomy, other Psychiatric history: Reports: no psych history CONTRACT WRITER history: Reports: no CONTRACT WRITER history - Social History Smoking Status: Never smoker Smokeless Tobacco Status: No Alcohol use: Reports: none Drug use: Reports: none Physical Exam - General Limitations: no limitations General appearance: alert, in no apparent distress Course Vital Signs Temperature 98.7 F 04/15/18 21:44 Pulse Rate 102 04/15/18 21:44 Respiratory Rate 24 04/15/18 21:44 Blood Pressure 110/69 04/15/18 21:44 O2 Sat by Pulse Oximetry 95 04/15/18 21:44 Temperature 98.7 F 04/15/18 21:44 Pulse Rate 92 04/15/18 22:41 Respiratory Rate 20 04/15/18 22:41 Blood Pressure 111/95 04/15/18 22:41 O2 Sat by Pulse Oximetry 100 04/15/18 22:41 Oxygen Delivery Oxygen Delivery Nasal Cannula Medical Decision Making - Medical Records Medical records reviewed: Yes I reviewed the patient's medical records. - Lab Data Lab results reviewed: Yes I reviewed the patient's lab results. Result diagrams: 04/15/18 21:50 04/15/18 21:50 Lab Results 04/15/18 04/15/18 04/15/18 Range/Units 21:50 21:50 22:30 WBC 8.7 (4.3-11.1) K/mcL RBC 2.77 L (3.82-4.97) M/mcL Hgb 8.6 L (11.5-15.4) g/dL Hct 27.8 L (35.3-44.9) % MCV 100.4 H (83.0-100.0) fL MCH 31.0 (28.0-33.3) pg MCHC 30.9 L (31.6-35.5) g/dL RDW 18.4 H (11.5-14.5) % Plt Count 158 (140-400) K/mcL MPV 10.9 (9.4-12.4) fL Immature Gran % 0.3 (0-4) % Seg Neutrophils % 79.4 % Lymphocytes % 7.0 % Monocytes % 10.7 % Eosinophils % 2.1 % Basophils % 0.5 % Neutrophils # 6.9 (1.6-8.9) K/mcL Lymphocytes # 0.6 (0.6-4.6) K/mcL Monocytes # 0.9 (0.0-1.3) K/mcL Eosinophils # 0.2 (0.0-0.6) K/mcL Basophils # 0.0 (0.0-0.2) K/mcL Sodium 129 L (136-145) mEq/L Potassium 4.1 (3.5-5.1) mEq/L Chloride 90 L (98-107) mEq/L Carbon Dioxide 27 (23-29) mEq/L BUN 51 H (8-23) mg/dL Creatinine 6.54 H (0.60-1.20) mg/dL Est GFR ( Amer) 7 L (> 60) Est GFR (Non-Af Amer) 6 L (> 60) BUN/Creatinine Ratio 8 (6-26) Glucose 422 H (70-105) mg/dL Calculated Osmolality 300 (280-300) Calcium 8.7 (8.6-10.3) mg/dL Stool Occult Bld Scrn Positive A (Negative) - Radiology Data Radiology results reviewed: Yes I reviewed the patient's radiology results. Chest X-Ray 04/15/18 22:06 IMPRESSION: 1. Moderate to severe pulmonary edema. D/ / Kandi Espinoza MD / Kandi Espinoza MD Interpreting Provider: Kandi Espinoza MD - EKG Data EKG #1 EKG attestation: Yes I reviewed and interpreted this EKG. EKG results narrative: EKG shows a sinus rhythm with ventricular rate of 96. He feces and PACs. Low v oltage in precordial leads. No acute ST segment elevation or depression. Critical Care Time Critical Care Time: No Attestation Statement - Attestation Attestation: I, Kev Holt MD, personally evaluated this patient and discussed their management with the resident physician. I reviewed the resident's note and agree with the documented findings, medical decision making, and plan of care. 77-year-old female presents to the emergency department with a complaint of rectal bleeding intermittently over the past 3 months or more. She was referred here tonight by her primary care provider to be admitted for symptomatic anemia. She has end-stage renal disease and is on hemodialysis. She has chronic atrial fibrillation and is on aspirin and Eliquis however her primary care provider discontinued the Eliquis on Monday because of her rectal bleeding and her hem oglobin was lower than usual in the range of 8. She states that she has bleeding with her bowel movements. Sometimes the bowel movements are black and tarry. Sometimes it is dark red or bright red. She denies abdominal pain. Symptoms have been worse over the past 3 weeks and she states that over the past week or so she has developed increasing generalized weakness and difficulty ambulating. Also increased shortness of breath. She is on chronic home oxygen but has had increased her oxygen. Some dizziness but no syncope. No chest pain. On examination patient is a well-developed obese elderly female in no acute distress. She is alert and oriented 3. There is no cyanosis or diaphoresis. Breath sounds are decreased bilaterally with some bibasilar rales. Heart irregularly irregular with a normal rate. Abdomen is soft and nontender with normal bowel sounds. Labs reviewed. Chest x-ray read as moderate to severe pulmonary edema. On reviewing the films myself I agree she has some pulmonary edema but she also appears to have pulmonary fibrosis and her x-ray is not significantly changed from previous chest x-rays. EKG shows a sinus rhythm with PACs and PVCs. Low voltage in precordial leads. No acute ischemic changes. The hospitalist, Dr. Gomez, was consulted and accepted admission of the patient.
[2018-04-15] MEDS ORDERED: Ondansetron ODT 4 MG TAB.RAPDIS PO PRN (23:33)
[2018-04-15] MEDS ORDERED: *HR* Dextrose 50 % in Water (Syg) 50 ML SYRINGE IVP PRN (23:37)
[2018-04-15] MEDS ORDERED: Dextrose Gel 15 GM/37.5 ML TUBE PO PRN ×2 (23:37)
[2018-04-15] MEDS ORDERED: Pantoprazole 40 MG VIAL IVP ONE (23:43)
--- NOTE | 2018-04-16 00:15 | Internal Med History&Physical ---
Date of Encounter: 04/15/18 Time of Encounter: 23:50 Internal Medicine - H&P: HPI Chief complaint: GI bleed Admitted From: Home Plans for Post Hospital Care: Home History of present illness: Swetha Villavicencio is a 77 year old woman with atrial fibrillation on apixaban, ischemic cardiomyopathy, insulin-dependent diabetes, ESRD on M/W/F schedule, hypertension, thyroid disease and COPD disease on 2L oxygen who presents complaining of blood in her stool over the past months as well as increasing shortness of breath and fatigue. She does report a prior anemic episode requiring transfusion in the past. She was seen by her PCP last week who stopped the apixaban but the bleeding continued. She denies associated abdominal pain and cramping. She describes the stool as dark and tarry but sometimes also see fresh bright red blood. No hemorrhoids or fissures were visualized on rectal exam. She is admitted for observation. She was seen by me on 04/15/17. Past Med Surg Social Fam HX - Past Medical History Medical history: arthritis, atrial fibrillation, cardiomyopathy, CHF, COPD, diabetes, dialysis, hyperlipidemia, hypertension, myocardial infarction, renal disease, thyroid disease Additional medical history: WEARS HOME 02 AT 2LPM VIA NC CONTINUOUS, , DIALYSIS -- , ALSO TO BE FLUID RESTRICTION 80UNCES OF FLUID DAILY Psychiatric history: no psych history - Past Surgical History Surgical History: angioplasty/stent, breast surgery, hysterectomy, other Additional surgical history: cyst removed left breast. left arm shunt - Social History Smoking Status: Never smoker Smokeless Tobacco Status: No Alcohol use: none Drug use: none - Family History Father Living Status: Hx Family Cardiac Disorders: Yes Hx Family Endocrine Disorder: Yes Mother Living Status: Hx Family Endocrine Disorder: Yes Internal Medicine - H&P: Meds Renal Vitamin [Renal Caps Softgel] 1 mg PO DAILY 12/04/14 [History] Sodium Bicarbonate 650 mg PO DAILY 10/03/16 [History] Vitamin B Complex Vit C No.4 [Super B Complex] 1 tab PO DAILY 10/03/16 [History] Promethazine [Phenergan] 12.5 mg PO Q6HR PRN 11/17/16 [History] Allopurinol [Zyloprim 100 MG] 100 mg PO DAILY 08/10/17 [History] Atorvastatin [Lipitor] 40 mg PO HS 08/10/17 [History] Folic Acid 0.8 mg PO DAILY 08/10/17 [History] Insulin DETEMIR [Levemir] 10 unit SQ DAILY 08/10/17 [History] Levothyroxine Sodium [Levoxyl] 100 mcg PO DAILY 08/10/17 [History] Pantoprazole Sodium [Protonix] 40 mg PO DAILY 08/10/17 [History] Aspirin Enteric Coated [Aspirin EC] 81 mg PO DAILY #30 tablet.dr 08/15/17 [Rx] Lidocaine Patch [Lidoderm 5% patch] 1 each TP DAILY #15 adh..patch 08/15/17 [Rx] Ondansetron HCl [Zofran] 4 mg PO Q8HR PRN #15 tablet 08/15/17 [Rx] Apixaban [Eliquis] 2.5 mg PO BID 01/22/18 [History] Allergy/AdvReac Type Severity Reaction Status Date / Time Amoxicillin [From Augmentin] AdvReac Vomiting Verified 03/10/18 19:50 clavulanic acid AdvReac Vomiting Verified 03/10/18 19:50 [From Augmentin] diphenhydramine AdvReac Hypotension Verified 03/10/18 21:31 [From Benadryl] ROS unobtainable: due to mental status All Systems PM: A 10-system review of systems was performed and is negative for pertinent findings except as documented above in the HPI. - Constitutional Vitals: Temp Pulse Resp BP Pulse Ox 98.7 F 93 20 100/68 100 04/15/18 21:44 04/15/18 23:51 04/15/18 23:51 04/15/18 23:51 04/15/18 23:51 Exam: Vitals: Reviewed General: Obese, NAD Skin: Pale, warm and supple. HEENT: Moist mucous membranes. (+) conjunctivae pallor. Neck: No lymphadenopathy. No JVD. No carotid bruits. No palpable thyroid. Chest: Normal thoracic expansion. Normal breath sounds. Clear to auscultation. Heart: Irregularly irregular. Abdomen: Non-distended, soft and non-tender to palpation. Extremities: 1+ pedal edema. Left forearm fistula. Neurological: Awake, alert and oriented to person, place and time. No focal deficits. Psych: Affect appropriate. Internal Med - H&P Results - Labs CBC & Chem 7: 04/15/18 21:50 04/15/18 21:50 Labs: Short CBC 04/15/18 Range/Units 21:50 WBC 8.7 (4.3-11.1) K/mcL Hgb 8.6 L (11.5-15.4) g/dL Hct 27.8 L (35.3-44.9) % Plt Count 158 (140-400) K/mcL Neutrophils # 6.9 (1.6-8.9) K/mcL BMP 04/15/18 21:50 Sodium 129 L Potassium 4.1 Chloride 90 L Carbon Dioxide 27 BUN 51 H Creatinine 6.54 H Glucose 422 H Calcium 8.7 - Impressions ITS Impressions Chest X-Ray 04/15/18 22:06 IMPRESSION: 1. Moderate to severe pulmonary edema. D/ / Kandi Espinoza MD / Kandi Espinoza MD Interpreting Provider: Kandi Espinoza MD - Assessment and plan (1) GI bleed Current Visit: Yes Status: Acute Assessment and plan: Unclear etiology; concern for a diverticular bleed hence will obtain a CT scan for evaluation. Will start PPI BID in the interim in case of a gastroduodenal source. GI consultation will be requested. Qualifiers: GI bleed type/associated pathology: unspecified gastrointestinal hemorrhage type Qualified Code(s): K92.2 - Gastrointestinal hemorrhage, unspecified (2) Anemia Current Visit: Yes Status: Chronic Assessment and plan: Concern for iron deficiency anemia due to chronic blood loss compounded by anemia of chronic disease. Will obtain iron studies. MCV noted elevated at 100.4. Iron & folate supplementation as needed. Qualifiers: Anemia type: iron deficiency Qualified Code(s): D50.0 - Iron deficiency anemia secondary to blood loss (chronic) (3) Diabetes Current Visit: Yes Status: Chronic Assessment and plan: Poorly controlled. The patient states she has not used insulin for many days as she ran out. Start insulin regimen now. 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 Qualifiers: Diabetes mellitus type: type 2 Diabetes mellitus terminal supervisor insulin use: with terminal supervisor use Diabetes mellitus complication status: with unspecified complications Qualified Code(s): E11.8 - Type 2 diabetes mellitus with unspecified complications; Z79.4 - ferry terminal agent (current) use of insulin (4) End-stage renal disease Current Visit: Yes Status: Chronic Assessment and plan: Will consult nephrology for placement on HD schedule. (5) Hypothyroidism Current Visit: Yes Status: Chronic Assessment and plan: Continue levothyroxine. Qualifiers: Hypothyroidism type: unspecified Qualified Code(s): E03.9 - Hypothyroidism, unspecified (6) DVT prophylaxis Current Visit: Yes Status: Acute Assessment and plan: Will place on SCDs. - Time Spent With Patient Total time spent is greater than 50% in coordination of care (as documented) at patient's floor/unit and/or counseling patient: Greater than 35 minutes
[2018-04-16] MEDS: Insulin LISPRO 300 UNITS/3 ML VIAL SQ SCH ×4 (00:27→17:33)
[2018-04-16] MEDS: Insulin DETEMIR 100 UNIT/ML X5UNITS SQ SCH ×2 (00:27→20:15)
[2018-04-16] MEDS ORDERED: Nitroglycerin 0.4 MG TAB.SUBL SL PRN (02:37)
[2018-04-16 06:36] LABS: Basophils # 0.1 K/mcL (0.0-0.2); Basophils % 0.6 %; Eosinophils # 0.4 K/mcL (0.0-0.6); Eosinophils % 4.3 %; Hematocrit 30.4 % (35.3-44.9); Hemoglobin 9.3 g/dL (11.5-15.4); Immature Granulocytes % 0.4 % (0-4); Immature Platelets 5.5 % (1.1-6.1); Lymphocytes # 0.8 K/mcL (0.6-4.6); Mean Corpuscular HGB Conc 30.6 g/dL (31.6-35.5); Mean Corpuscular Hemoglobin 31.2 pg (28.0-33.3); Mean Platelet Volume 11.7 fL (9.4-12.4); Monocytes # 1.3 K/mcL (0.0-1.3); Monocytes % 12.9 %; Neutrophils # 7.6 K/mcL (1.6-8.9); Platelet Count 156 K/mcL (140-400); Red Blood Count 2.98 M/mcL (3.82-4.97); Red Cell Distribution Width 18.9 % (11.5-14.5); Segmented Neutrophils % 73.8 %
[2018-04-16 06:40] LABS: Immature Reticulocyte % 28.7 % (11.0-38.0); Retculocyte # 0.13 M/mcL (0.05-0.10); Reticulocyte % 4.4 % (1.6-2.8)
[2018-04-16 06:42] LABS: Prothrombin Time 11.8 Seconds (9.4-12.1)
[2018-04-16 06:44] LABS: Activated Partial Thrombo Time 22.5 Seconds (26.0-36.0)
[2018-04-16 07:07] LABS: Calcium 9.1 mg/dL (8.6-10.3)
[2018-04-16 07:08] LABS: % Iron Saturation 31 % (15-50); Iron 82 mcg/dL (50-170); Transferrin 191 mg/dL (203-362)
[2018-04-16 07:32] LABS: Ferritin > 1500 ng/mL (10-120)
[2018-04-16] MEDS ORDERED: D5% in Water 1,000 ML IVC PRN (07:53)
[2018-04-16] MEDS ORDERED: 0.9 % Sodium Chloride 250 ML IVC PRN (07:55)
[2018-04-16] MEDS ORDERED: *HR* Heparin 10,000 UNIT/10 ML VIAL IV PRN (07:55)
[2018-04-16] MEDS ORDERED: 0.9 % Sodium Chloride 1,000 ML PRIME SCH (08:00)
[2018-04-16] MEDS ORDERED: 0.9 % Sodium Chloride 2,000 ML ONE (08:00)
--- NOTE | 2018-04-16 08:38 | Internal Med Progress Note ---
<Lise Saha - Last Filed: 04/16/18 08:34> Hospitalist Progress Note - Encounter Date of Encounter: 04/16/18 Time of Encounter: 08:34 - Subjective Interval History: The patient was seen and examined. She is sitting up at the bedside upon my arrival. She reports that she has been sitting up all night. She states that she feels very fatigued and nauseated. She requests a few sips of coffee to wake her up and make her feel better. She reports that she has been having bloody and dark stools for several months. She has been struggling with constipation and took a laxative on Monday night. She denies any chest pain but reports that it is hard to take a deep breath. She denies any abdominal pain. - Exam Vitals: Temp Pulse Resp BP Pulse Ox 97.6 F 79 18 98/48 100 04/16/18 06:56 04/16/18 06:56 04/16/18 06:56 04/16/18 06:56 04/16/18 06:56 Exam: General: alert and oriented, WD/WN in NAD, pt appears fatigued HEENT: NC/AT, PERRLA, EOMI, mucous membranes dry Cardio: RRR systolic murmur, pulses 2+ Respiratory: LCTAB, no cyanosis or clubbing Abd: soft, non-tender, no guarding or rigidity, bs present, obese Extremities: non-tender, 1+ pitting edema, wounds and some weeping in various stages of healing on b/l LE, pulses 2+; left forearm fistula Skin: warm, dry, wounds present b/l LE Neuro: alert and oriented, no acute deficits Psych: normal mood and affect - Assessment and Plan (1) GI bleed Current Visit: Yes Status: Acute Assessment and Plan: Etiology likely secondary to extensive sigmoid colonic diverticulosis seen on CT. H/H stable at 9.3/30.4 GI has been consulted, appreciate their recommendations Plan: -Continue with NPO status until GI evaluates -Continue protonix BID (2) Anemia Current Visit: Yes Status: Chronic Assessment and Plan: Secondary to ESRD H/H stable, appears to be at pt baseline. Plan: -Continue to monitor, transfuse as necessary (3) Diabetes Current Visit: Yes Status: Chronic Assessment and Plan: IDDM, pt admits to recent non-compliance with insulin regimen. BS was elevated at admission at 422 Plan: -DM diet once evaluted by GI -Levemir 10 units daily -Low dose SSI -Kayla GRAYS (4) End-stage renal disease Current Visit: Yes Status: Chronic Assessment and Plan: ESRD with HD M/W/F Nephrology has been consulted, appreciate their recommendations and management of HD. Plan -HD per nephrology (5) Hypothyroidism Current Visit: Yes Status: Chronic Assessment and Plan: Continue levothyroxine - Time Spent with Patient Total time spent is greater than 50% in coordination of care (as documented) at patient's floor/unit and/or counseling patient: Internal Medicine: Result - Labs CBC & Chem 7: 04/16/18 06:25 04/16/18 06:35 Labs: Short CBC 04/15/18 04/16/18 Range/Units 21:50 06:25 WBC 8.7 10.3 (4.3-11.1) K/mcL Hgb 8.6 L 9.3 L (11.5-15.4) g/dL Hct 27.8 L 30.4 L (35.3-44.9) % Plt Count 158 156 (140-400) K/mcL Neutrophils # 6.9 7.6 (1.6-8.9) K/mcL BMP 04/15/18 04/16/18 21:50 06:35 Sodium 129 L 132 L Potassium 4.1 4.0 Chloride 90 L 92 L Carbon Dioxide 27 26 BUN 51 H 55 H Creatinine 6.54 H 6.80 H Glucose 422 H 140 H Calcium 8.7 9.1 - ABG Interpretation ABG results: PT/INR, D-dimer PT 11.8 Seconds (9.4-12.1) 04/16/18 06:25 - Impressions Impressions Chest X-Ray 04/15/18 22:06 IMPRESSION: 1. Moderate to severe pulmonary edema. D/ / Kandi Espinoza MD / Kandi Espinoza MD Interpreting Provider: Kandi Espinoza MD Abdomen/Pelvis CT 04/16/18 05:00 IMPRESSION: 1. Findings consistent with acute congestive heart failure with a mild left pleural effusion. 2. Evidence of cirrhosis with mild ascites and splenomegaly. Diffuse body wall and peritoneal/retroperitoneal edema. 3. There is some mild nonspecific hyperdense material within the colon from level of the cecum through the sigmoid colon which could relate to acute hemorrhage. Extensive sigmoid colonic diverticulosis which could be a source of hemorrhage. D/ / Venkat Vargas MD / Venkat Vargas MD Interpreting Provider: Venkat Vargas MD Consult Discharge Plan - Plan Referrals: NONE,PCP [Primary Care Provider] - <Eros Aguillon - Last Filed: 04/16/18 13:56> Hospitalist Progress Note - Encounter Date of Encounter: 04/16/18 - Exam Vitals: Temp Pulse Resp BP Pulse Ox 97.6 F 79 18 98/48 100 04/16/18 06:56 04/16/18 06:56 04/16/18 06:56 04/16/18 06:56 04/16/18 08:47 - Assessment and Plan (1) Diabetes Current Visit: Yes Status: Chronic (2) End-stage renal disease Current Visit: Yes Status: Chronic (3) GI bleed Current Visit: Yes Status: Acute (4) Anemia Current Visit: Yes Status: Chronic (5) Hypothyroidism Current Visit: Yes Status: Chronic (6) DVT prophylaxis Current Visit: Yes Status: Acute - Time Spent with Patient Total time spent is greater than 50% in coordination of care (as documented) at patient's floor/unit and/or counseling patient: Internal Medicine: Result - Labs CBC & Chem 7: 04/16/18 06:25 04/16/18 06:35 Labs: Short CBC 04/15/18 04/16/18 Range/Units 21:50 06:25 WBC 8.7 10.3 (4.3-11.1) K/mcL Hgb 8.6 L 9.3 L (11.5-15.4) g/dL Hct 27.8 L 30.4 L (35.3-44.9) % Plt Count 158 156 (140-400) K/mcL Neutrophils # 6.9 7.6 (1.6-8.9) K/mcL BMP 04/15/18 04/16/18 21:50 06:35 Sodium 129 L 132 L Potassium 4.1 4.0 Chloride 90 L 92 L Carbon Dioxide 27 26 BUN 51 H 55 H Creatinine 6.54 H 6.80 H Glucose 422 H 140 H Calcium 8.7 9.1 Liver Function 04/16/18 Range/Units 11:47 Total Bilirubin 1.0 (0.3-1.0) mg/dL Direct Bilirubin 0.4 H (0.0-0.2) mg/dL AST 26 (13-39) Units/L ALT 14 (7-52) Units/L Alkaline Phosphatase 139 H (34-104) Units/L Albumin 3.2 L (3.5-5.7) g/dL - ABG Interpretation ABG results: PT/INR, D-dimer PT 11.8 Seconds (9.4-12.1) 04/16/18 06:25 - Impressions Impressions Chest X-Ray 04/15/18 22:06 IMPRESSION: 1. Moderate to severe pulmonary edema. D/ / Kandi Espinoza MD / Kandi Espinoza MD Interpreting Provider: Kandi Espinoza MD Abdomen/Pelvis CT 04/16/18 05:00 IMPRESSION: 1. Findings consistent with acute congestive heart failure with a mild left pleural effusion. 2. Evidence of cirrhosis with mild ascites and splenomegaly. Diffuse body wall and peritoneal/retroperitoneal edema. 3. There is some mild nonspecific hyperdense material within the colon from level of the cecum through the sigmoid colon which could relate to acute hemorrhage. Extensive sigmoid colonic diverticulosis which could be a source of hemorrhage. 4. Cholelithiasis. D/ / 04/16/2018 08:47:56 Venkat Vargas MD / edward Interpreting Provider: Venkat Vargas MD - Attending Attestation I examined this patient and my medical decision-making was reviewed with the Resident Physician on 04/16/18. I agree with the documented findings, disposition and treatment plan as described except to the extent set forth below. Ms Villavicencio is currently admitted for acute LGI bleed and anemia. She remains moderate to high risk due to potential for worsening clinical status. Ms Villavicencio is feeling very fatigued. She is to have dialysis today. No CP or SOB. NPO for possible GI procedure. Exam Alert Comfortable. Sitting on side of bed. Daughter at bedside. Mucus membranes dry Heart distant and regular Decreased breath sounds. No wheeze abd soft and nontender Edema present. I/P 1. Hematochezia - to have EGD and colonoscopy tomorrow. 2. ESRD on HD 3. Anemia due to chronic blood loss 4. DM - uncontrolled 5. Hypothyroid Further diagnoses and plan as above. <Lise Saha - Last Filed: 04/16/18 08:34> (1) GI bleed Qualifiers: GI bleed type/associated pathology: unspecified gastrointestinal hemorrhage type Qualified Code(s): K92.2 - Gastrointestinal hemorrhage, unspecified (2) Anemia Qualifiers: Anemia type: due to chronic kidney disease (3) Diabetes Qualifiers: Diabetes mellitus type: type 2 Diabetes mellitus activity assistant insulin use: with activity assistant use Diabetes mellitus complication status: with unspecified complications Qualified Code(s): E11.8 - Type 2 diabetes mellitus with uns pecified complications; Z79.4 - muffler mechanic (current) use of insulin (5) Hypothyroidism Qualifiers: Hypothyroidism type: unspecified Qualified Code(s): E03.9 - Hypothyroidism, unspecified <Eros Aguillon - Last Filed: 04/16/18 13:56> (1) Diabetes Qualifiers: Diabetes mellitus type: type 2 Diabetes mellitus activity assistant insulin use: with activity assistant use Diabetes mellitus complication status: with hyperglycemia Qualified Code(s): E11.65 - Type 2 diabetes mellitus with hyperglycemia; Z79.4 - residential (current) use of insulin (3) GI bleed Qualifiers: GI bleed type/associated pathology: melena Qualified Code(s): K92.1 - Melena (4) Anemia Qualifiers: Anemia type: iron deficiency Iron deficiency anemia type: chronic blood loss Qualified Code(s): D50.0 - Iron deficiency anemia secondary to blood loss (chronic) (5) Hypothyroidism Qualifiers: Hypothyroidism type: acquired Qualified Code(s): E03.9 - Hypothyroidism, unspecified
[2018-04-16] MEDS: Pantoprazole 40 MG VIAL IVP SCH (08:43)
[2018-04-16] MEDS: Aspirin Enteric Coated 81 MG Tablet PO SCH (08:43)
[2018-04-16] MEDS: Folic Acid 1 MG TABLET PO SCH (08:44)
[2018-04-16 09:34] LABS: Hepatitis B Surface Antibody < 3.10 mIU/mL
[2018-04-16 09:46] LABS: Hepatitis B Surface Antigen Nonreactive (Nonreactive)
--- NOTE | 2018-04-16 10:18 | Nephrology Consult Note ---
Date of Encounter: 04/16/18 Time of Encounter: 10:11 Assessment and Plan (1) ESRD (end stage renal disease) on dialysis Current Visit: Yes Status: Acute Current regimen is MWF with Dr. Coreas in [place], [place]. HD in progress for today. Renal diet Renal vitamins Strict I/O Avoid nephrotoxins and renal dose all medications. (2) GI bleed Current Visit: Yes Status: Acute Hgb is 9.3 today. GI consulted by primary Qualifiers: GI bleed type/associated pathology: unspecified gastrointestinal hemorrhage type Qualified Code(s): K92.2 - Gastrointestinal hemorrhage, unspecified (3) Anemia Current Visit: Yes Status: Chronic See above. Qualifiers: Anemia type: unspecified type Qualified Code(s): D64.9 - Anemia, unspecified (4) Diabetes Current Visit: Yes Status: Chronic Per primary. 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 Villavicencio is a 77 year old female who presented to the ER yesterday for reports of melena. PMH: diabetes requiring insulin, end-stage renal disease on dialysis, previous GI bleeds, A. fib on Eliquis, and COPD requiring oxygen at home. ESRD regimen is MWF at [place] with Dr. Coreas. She has not missed any HD treatments. Initial Hgb was 8.3, which was drawn by her PCP. She was encouraged to stop Eliquis and start PPI. She denies fever, chills. Denies nausea, diarrhea. She did have 2 reported episodes of emesis at home in the past 3 weeks. She states the melena has been "off and on" for the last 3 weeks worsening in the last week. Denies hematemesis. Denies hematuria, frequency, or urgency. [facility] were managed to order hemodialysis. We will continue w ith her current regimen unless additional UF or HD as needed. Denies tobacco, EtOH or illicit drug use. Past Med Surg Social Fam HX - Past Medical History Medical history: arthritis, atrial fibrillation, cardiomyopathy, CHF, COPD, diabetes, dialysis, hyperlipidemia, hypertension, myocardial infarction, renal disease, thyroid disease Additional medical history: WEARS HOME 02 AT 2LPM VIA NC CONTINUOUS, , DIALYSIS -- , ALSO TO BE FLUID RESTRICTION 80UNCES OF FLUID DAILY Psychiatric history: no psych history - Past Surgical History Surgical History: angioplasty/stent, breast surgery, hysterectomy, other Additional surgical history: cyst removed left breast. left arm shunt - Social History Smoking Status: Never smoker Smokeless Tobacco Status: No Alcohol use: none Drug use: none - Family History Father Living Status: Hx Family Cardiac Disorders: Yes Hx Family Endocrine Disorder: Yes Mother Living Status: Hx Family Endocrine Disorder: Yes Medications and Allergies Sodium Bicarbonate 650 mg PO DAILY 10/03/16 [History] Vitamin B Complex Vit C No.4 [Super B Complex] 1 tab PO DAILY 10/03/16 [History] Promethazine [Phenergan] 12.5 mg PO Q6HR PRN 11/17/16 [History] Allopurinol [Zyloprim 100 MG] 100 mg PO DAILY 08/10/17 [History] Atorvastatin [Lipitor] 40 mg PO HS 08/10/17 [History] Folic Acid 0.8 mg PO DAILY 08/10/17 [History] Insulin DETEMIR [Levemir] 10 unit SQ BID 08/10/17 [History] Levothyroxine Sodium [Levoxyl] 125 mcg PO DAILY 08/10/17 [History] Pantoprazole Sodium [Protonix] 40 mg PO DAILY 08/10/17 [History] Aspirin Enteric Coated [Aspirin EC] 81 mg PO DAILY #30 tablet.dr 08/15/17 [Rx] Lidocaine Patch [Lidoderm 5% patch] 1 each TP DAILY #15 adh..patch 08/15/17 [Rx] Ondansetron HCl [Zofran] 4 mg PO Q8HR PRN #15 tablet 08/15/17 [Rx] Nitroglycerin [Nitrostat] 0.4 mg SL Q5MIN PRN 04/16/18 [History] Allergy/AdvReac Type Severity Reaction Status Date / Time Amoxicillin [From Augmentin] AdvReac Vomiting Verified 03/10/18 19:50 clavulanic acid AdvReac Vomiting Verified 03/10/18 19:50 [From Augmentin] diphenhydramine AdvReac Hypotension Verified 03/10/18 21:31 [From Benadryl] Review of Systems All Systems review (narrative): The remainder of the systems are negative. Constitutional: fatigue, no chills, no fever(s) Cardiovascular: dyspnea, no chest pain, no edema, no palpitations Gastrointestinal: melena, vomiting, no change in bowel habits, no diarrhea, no nausea Genitourinary Female: no hematuria, no urinary frequency, no urinary hesitancy, no urinary urgency Exam - Vital Signs Vital signs: Initial Vital Signs Temp Pulse Resp BP Pulse Ox 98.7 F 102 24 110/69 95 04/15/18 21:44 04/15/18 21:44 04/15/18 21:44 04/15/18 21:44 04/15/18 21:44 Vital Signs - Last 8 Hours Temp Pulse Resp BP Pulse Ox 04/16/18 08:47 100 04/16/18 06:56 97.6 F 79 18 98/48 100 04/16/18 04:24 98.2 F 81 21 119/41 100 Intake and Output 04/15/18 04/16/18 04/16/18 23:59 07:59 15:59 Intake Total 0 / 0 Output Total 0 / 0 Balance 0 / 0 Intake: Oral 0 / 0 Output: Urine 0 / 0 Other: Weight 106.458 kg Blood Glucose* 133 - General Appearance General appearance: well-developed, well-nourished EENT: ATNC, hearing intact, vision intact Neck: supple Respiratory: clear Cardiology: edema (+2 pitting edema noted to bilat lower extremities.), normal S1, normal S2 - Dialysis Access Dialysis Vascular Access: Arteriovenous Fistula thrill: Yes bruit: Yes Gastrointestinal: normoactive bowel sounds, no tenderness, no guarding Integumentary: no rash, warm and dry Neurologic: alert and oriented x3 Musculoskeletal: no deformities, no erythema Psychiatric: mood/affect appropriate, cooperative Results - Lab Results 04/16/18 06:25 04/16/18 06:35 Most recent lab results Calcium 9.1 mg/dL (8.6-10.3) 04/16/18 06:35 Consult Discharge Plan - Plan Referrals: NONE,PCP [Primary Care Provider] -
--- NOTE | 2018-04-16 11:24 | Gastroenterology Consult Note ---
<Humphrey Darby - Last Filed: 04/16/18 11:21> Date of Encounter: 04/16/18 Time of Encounter: 09:30 - Assessment and plan (1) Cirrhosis Current Visit: Yes Status: Acute Assessment and plan: CT A/P with evidence of cirrhosis with mild ascites, mild nonspecific hyperdense material within colon from cecum through sigmoid colon which could relate to acute hemorrhage, extensive sigmoid diverticulosis. Complete liver workup. (AFP, alpha-1 antitrypsin, MIRTHA, ANCA, CBC, ceruloplasmin, CMP, F actin, ferritin >1500, hepatitis profile, AMA, PT/INR) Check liver ultrasound. Complete EGD. Unable to calculate MELD-Na or Child-Torres score. Lifestyle Changes: 1. Total abstinence from alcohol including social drinking. 2. No smoking. 3. Gradual loss of weight. 4. Drink at least 3 cups of coffee due to its antioxidant effects in the liver, it reduces risk of HCC and advance fibrosis. 5. If needed, use less than 2 g/day of Tylenol (in divided doses). 6. Vaccination for Hep A, B, Pneumococcus if not already received and yearly influenza vaccination by PCP. 7. Avoid NSAIDS as can cause kidney damage. 8. Avoid benzodiazepines and other sedatives such as anti-histamines, narcotics etc. as can cause encephalopathy or confusion. 9. Take a late carbohydrate meal supplement as it reduces glucose production from protein breakdown and thus improves nutrition. 10. In cirrhosis, statins are safe to use and also improve portal hypertension and decrease risk of HCC. 11. Hepatocellular cancer screening: US of liver and AFP every 6 months Qualifiers: Hepatic cirrhosis type: unspecified hepatic cirrhosis Ascites presence: with ascites Qualified Code(s): K74.60 - Unspecified cirrhosis of liver; R18.8 - Other ascites (2) GI bleed Current Visit: Yes Status: Acute Assessment and plan: Patient with melena and BRBPR. Plan for EGD and colonoscopy tomorrow. Clear liquid diet today, no red or purple. NPO at midnight. If unable tolerate NuLytely please use MiraLAX prep. If not clear by 6 AM, give 2 tap water enemas. Qualifiers: GI bleed type/associated pathology: unspecified gastrointestinal hemorrhage type Qualified Code(s): K92.2 - Gastrointestinal hemorrhage, unspecified (3) Anemia Current Visit: Yes Status: Chronic Assessment and plan: Hgb on admission 8.6 and this AM Hgb 9.3. Her baseline Hgb is 9-10. Continue to monitor CBC and transfuse PRBC as needed. Plan for EGD and colonoscopy tomorrow. Qualifiers: Anemia type: unspecified type Qualified Code(s): D64.9 - Anemia, unspecified (4) Elevated ferritin level Current Visit: Yes Status: Acute Assessment and plan: Ferritin >1500. Check hemochromatosis panel. (5) End-stage renal disease Current Visit: Yes Status: Chronic - Time Spent With Patient Total time spent is greater than 50% in coordination of care (as documented) at patient's floor/unit and/or counseling patient: GI History of Present Illness - Data of Consult Patient: new to practice Consult date: 04/16/18 Requesting Physician: Eros Aguillon DO - Consult Narrative Reason for consult: GI bleed, anemia History of present illness: Ms. Villavicencio is a 77 year old female with PMHx of Afib on Apixiban, ischemic cardiomyopathy, IDDM, ESRD, HTN, COPD on 2L home O2, [place] who presented to the ED with black tarry stool, BRBPR, shortness of breath, and fatigue. She was seen by her PCP last week who stopped the apixaban but the bleeding continued. She states the BRB and black tarry stools have been ongoing since December 2017. She denies fever, chills, chest pain, abdominal pain, nausea, vomiting. Hgb on admission 8.6 and this AM Hgb 9.3. Her baseline Hgb is 9-10. CT A/P with evidence of cirrhosis with mild ascites, mild nonspecific hyperdense material within colon from cecum through sigmoid colon which could relate to acute hemorrhage, extensive sigmoid diverticulosis. Patient denies alcohol use. Procedures: None NSAIDs: ASA Anticoagulation: None Past Med Surg Social Fam HX - Past Medical History Medical history: arthritis, atrial fibrillation, cardiomyopathy, CHF, COPD, diabetes, dialysis, hyperlipidemia, hypertension, myocardial infarction, renal disease, thyroid disease Additional medical history: WEARS HOME 02 AT 2LPM VIA NC CONTINUOUS, , DIALYSIS M-W- , ALSO TO BE FLUID RESTRICTION 80UNCES OF FLUID DAILY Psychiatric history: no psych history - Past Surgical History Surgical History: angioplasty/stent, breast surgery, hysterectomy, other Additional surgical history: cyst removed left breast. left arm shunt - Social History Smoking Status: Never smoker Smokeless Tobacco Status: No Alcohol use: none Drug use: none - Family History Father Living Status: Hx Family Cardiac Disorders: Yes Hx Family Endocrine Disorder: Yes Mother Living Status: Hx Family Endocrine Disorder: Yes - Gastrointestinal Gastrointestinal: Present: as per HPI - Constitutional Constitutional: as per HPI - EENT Eyes: as per HPI Ears: Present: as per HPI Nose, mouth and throat: Present: as per HPI - Cardiovascular Cardiovascular ROS: Present: as per HPI - Respiratory Respiratory IM: Present: as per HPI - Genitourinary Genitourinary: Absent: change in color, Urinary frequency - Neurological ROS Neurological GI: Present: as per HPI - Hematologic/Lymphatic Hematologic/Lymphatic pediatric: Present: as per HPI - Musculoskeletal Musculoskeletal ROS GI: Present: as per HPI - Integumentary Integumentary GI: Present: as per HPI - Psychiatric ROS Psychiatric GI: Present: as per HPI - Endocrine Endocrine IM: Present: as per HPI - Constitutional Vitals: Temp Pulse Resp BP Pulse Ox 97.6 F 79 18 98/48 100 04/16/18 06:56 04/16/18 06:56 04/16/18 06:56 04/16/18 06:56 04/16/18 08:47 General appearance: Present: cooperative, A&O X 3, no acute distress, answers questions appropriately - Head Head exam: Present: atraumatic, normocephalic - Eye Eye exam: Present: normal appearance, sclera anicteric - ENT ENT exam: Present: mucous membranes moist - Neck Neck exam general surgery: Present: normal inspection, trachea midline - Respiratory Respiratory exam: Present: decreased breath sounds, CTAB. Absent: rales, rhonchi - Cardiovascular Cardiovascular exam: Present: RRR, +S1, +S2 - GI/Abdominal GI/Abdominal exam: Present: soft, no peritoneal signs. Absent: distended, firm, guarding, tenderness - Rectal Rectal exam: Present: deferred - Extremities Exam Extremities exam: Present: warm - Neurological Exam Neurological exam: Present: no focal deficits - Psychiatric Psychiatric exam: Present: normal affect, normal mood - Skin Skin exam: Present: dry, intact, normal color, warm Results - Labs CBC & Chem 7: 04/16/18 06:25 04/16/18 06:35 Labs: Last Result Calcium 9.1 mg/dL (8.6-10.3) 04/16/18 06:35 Iron 82 mcg/dL (50-170) 04/16/18 06:35 % Saturation 31 % (15-50) 04/16/18 06:35 Transferrin 191 mg/dL (203-362) L 04/16/18 06:35 Ferritin > 1500 ng/mL (10-120) H 04/16/18 06:35 Entire Visit Hgb 9.3 g/dL (11.5-15.4) L 04/16/18 06:25 Hct 30.4 % (35.3-44.9) L 04/16/18 06:25 PT 11.8 Seconds (9.4-12.1) 04/16/18 06:25 Ferritin > 1500 ng/mL (10-120) H 04/16/18 06:35 - ABG ABG results: PT/INR, D-dimer PT 11.8 Seconds (9.4-12.1) 04/16/18 06:25 - Impressions Impressions Chest X-Ray 04/15/18 22:06 IMPRESSION: 1. Moderate to severe pulmonary edema. D/ / Kandi Espinoza MD / Kandi Espinoza MD Interpreting Provider: Kandi Espinoza MD Abdomen/Pelvis CT 04/16/18 05:00 IMPRESSION: 1. Findings consistent with acute congestive heart failure with a mild left pleural effusion. 2. Evidence of cirrhosis with mild ascites and splenomegaly. Diffuse body wall and peritoneal/retroperitoneal edema. 3. There is some mild nonspecific hyperdense material within the colon from level of the cecum through the sigmoid colon which could relate to acute hemorrhage. Extensive sigmoid colonic diverticulosis which could be a source of hemorrhage. 4. Cholelithiasis. D/ / 04/16/2018 08:47:56 Venkat Vargas MD / edward Interpreting Provider: Venkat Vargas MD Consult Discharge Plan - Plan Referrals: NONE,PCP [Primary Care Provider] - <Genesis Sanchez - Last Filed: 04/16/18 14:01> Date of Encounter: 04/16/18 Time of Encounter: 13:00 - Time Spent With Patient Total time spent is greater than 50% in coordination of care (as documented) at patient's floor/unit and/or counseling patient: GI History of Present Illness - Data of Consult Requesting Physician: Eros Aguillon DO - Consult Narrative History of present illness: Ms. Villavicencio is a 77 year old female - Constitutional Vitals: Temp Pulse Resp BP Pulse Ox 97.6 F 79 18 98/48 100 04/16/18 06:56 04/16/18 06:56 04/16/18 06:56 04/16/18 06:56 04/16/18 08:47 Results - Labs CBC & Chem 7: 04/16/18 06:25 04/16/18 06:35 Labs: Last Result Calcium 9.1 mg/dL (8.6-10.3) 04/16/18 06:35 Iron 82 mcg/dL (50-170) 04/16/18 06:35 % Saturation 31 % (15-50) 04/16/18 06:35 Transferrin 191 mg/dL (203-362) L 04/16/18 06:35 Ferritin > 1500 ng/mL (10-120) H 04/16/18 06:35 Entire Visit Hgb 9.3 g/dL (11.5-15.4) L 04/16/18 06:25 Hct 30.4 % (35.3-44.9) L 04/16/18 06:25 PT 11.8 Seconds (9.4-12.1) 04/16/18 06:25 Ferritin > 1500 ng/mL (10-120) H 04/16/18 06:35 Total Bilirubin 1.0 mg/dL (0.3-1.0) 04/16/18 11:47 AST 26 Units/L (13-39) 04/16/18 11:47 ALT 14 Units/L (7-52) 04/16/18 11:47 - ABG ABG results: PT/INR, D-dimer PT 11.8 Seconds (9.4-12.1) 04/16/18 06:25 - Impressions Impressions Chest X-Ray 04/15/18 22:06 IMPRESSION: 1. Moderate to severe pulmonary edema. D/ / Kandi Espinoza MD / Kandi Espinoza MD Interpreting Provider: Kandi Espinoza MD Abdomen/Pelvis CT 04/16/18 05:00 IMPRESSION: 1. Findings consistent with acute congestive heart failure with a mild left pleural effusion. 2. Evidence of cirrhosis with mild ascites and splenomegaly. Diffuse body wall and peritoneal/retroperitoneal edema. 3. There is some mild nonspecific hyperdense material within the colon from level of the cecum through the sigmoid colon which could relate to acute hemorrhage. Extensive sigmoid colonic diverticulosis which could be a source of hemorrhage. 4. Cholelithiasis. D/ / 04/16/2018 08:47:56 Venkat Vargas MD / edward Interpreting Provider: Venkat Vargas MD - Attending Attestation I have personally performed a face to face evaluation on this patient. I have reviewed and agree with the care plan. History and Exam by me shows: Patient seen. Denies any abdominal pain. On examination abdomen is soft. Assessment: Patient 77-year-old female with multiple comorbidities now with the lower GI bleed. #2 cirrhosis. Recommendation: EGD and colonoscopy tomorrow
[2018-04-16] MEDS ORDERED: Mag Hydrox/Al Hydrox/Simeth 30 ML UDC PO PRN (11:45)
[2018-04-16] MEDS ORDERED: Acetaminophen 325 MG TABLET PO ONE (12:02)
[2018-04-16 12:34] LABS: Albumin 3.2 g/dL (3.5-5.7); Bilirubin,Direct 0.4 mg/dL (0.0-0.2); Bilirubin,Indirect 0.6 mg/dL (0.0-1.2); Globulin 3.1 g/dL (2.4-3.5); Total Protein 6.3 g/dL (6.4-8.9)
[2018-04-16 13:12] LABS: Hepatitis B Surface Antigen Nonreactive (Nonreactive)
[2018-04-16 13:41] LABS: Hepatitis B Core IgM Nonreactive (Nonreactive)
[2018-04-16 13:43] LABS: Hepatitis A Antibody IgM Nonreactive (Nonreactive); Hepatitis C Virus Antibody Nonreactive (Nonreactive)
[2018-04-16] MEDS ORDERED: SODIUM CHLORIDE/NAHCO3/KCL/PEG 4,000 ML SOLN.RECON PO ONE (17:00)
--- NOTE | 2018-04-17 00:04 | Event Note ---
Date of Encounter: 04/16/18 Time of Encounter: 21:09 Alerted by patient's nurse DA Anderson that patient was nothing by mouth for liver ultrasound and possible GI bleed. Nurse inquired if the patient could have clear liquid diet until midnight. Nothing by mouth order in place so I paged Dr. Sanchez to inquire if patient can have clear liquid diet prior to midnight. Spoke with Dr. Sanchez who agreed the patient was able to have clear liquid diet with no reds or purples tonight. Pt. currently completing bowel prep as well. Clears ordered for now and NPO ordered for midnight so pt. can proceed w/planned EGD and colonoscopy in the a.m. As always, I appreciate the consult and recommendations from GI. Nurse instructed to monitor the pt. closely and encourage continuation of bowel prep overnight and alert me immediately of any adverse changes.
[2018-04-17] MEDS: Insulin LISPRO 300 UNITS/3 ML VIAL SQ SCH ×5 (00:28→19:37)
[2018-04-17 05:12] LABS: Basophils # 0.1 K/mcL (0.0-0.2); Basophils % 0.6 %; Eosinophils # 0.2 K/mcL (0.0-0.6); Eosinophils % 2.7 %; Hematocrit 27.6 % (35.3-44.9); Hemoglobin 8.3 g/dL (11.5-15.4); Immature Granulocytes % 0.2 % (0-4); Lymphocytes # 0.5 K/mcL (0.6-4.6); Lymphocytes % 6.5 %; Mean Corpuscular HGB Conc 30.1 g/dL (31.6-35.5); Mean Corpuscular Hemoglobin 31.1 pg (28.0-33.3); Mean Corpuscular Volume 103.4 fL (83.0-100.0); Mean Platelet Volume 11.8 fL (9.4-12.4); Monocytes # 0.9 K/mcL (0.0-1.3); Monocytes % 11.1 %; Neutrophils # 6.3 K/mcL (1.6-8.9); Platelet Count 152 K/mcL (140-400); Red Blood Count 2.67 M/mcL (3.82-4.97); Red Cell Distribution Width 19.3 % (11.5-14.5); Segmented Neutrophils % 78.9 %
[2018-04-17 06:10] LABS: Calcium 8.7 mg/dL (8.6-10.3); Potassium 4.1 mEq/L (3.5-5.1)
[2018-04-17] MEDS: Pantoprazole 40 MG VIAL IVP SCH (08:02)
[2018-04-17] MEDS: Folic Acid 1 MG TABLET PO SCH (08:02)
[2018-04-17] MEDS: Aspirin Enteric Coated 81 MG Tablet PO SCH (08:02)
--- NOTE | 2018-04-17 08:24 | Internal Med Progress Note ---
<Lise Saha - Last Filed: 04/17/18 10:51> Hospitalist Progress Note - Encounter Date of Encounter: 04/17/18 Time of Encounter: 08:00 - Subjective Interval History: The patient was seen and examined. She is laying in the bed upon my arrival. She states that she feels a lot better today. She did have HD yesterday. She is currently NPO and doing bowel prep for EGD/Colonoscopy today. She denies any chest pain but reports that it is hard to take a deep breath. She denies any abdominal pain. - Exam Vitals: Temp Pulse Resp BP Pulse Ox 97.7 F 84 18 103/68 100 04/17/18 07:30 04/17/18 07:30 04/17/18 07:30 04/17/18 07:30 04/17/18 07:30 Exam: General: alert and oriented, WD/WN in NAD HEENT: NC/AT, PERRLA, EOMI, mucous membranes dry Cardio: RRR systolic murmur, pulses 2+ Respiratory: LCTAB, no cyanosis or clubbing Abd: soft, non-tender, no guarding or rigidity, bs present, obese Extremities: non-tender, trace edema, wounds and some weeping in various stages of healing on b/l LE, pulses 2+; left forearm fistula Skin: warm, dry, wounds present b/l LE Neuro: alert and oriented, no acute deficits Psych: normal mood and affect - Assessment and Plan (1) GI bleed Current Visit: Yes Status: Acute Assessment and Plan: Pt with melena and BRBPR Hgb 8.3, Hct 27.6 GI has been consulted, appreciate their recommendations Plan: -EGD/Colonoscopy today with GI -Continue protonix BID -If EGD does not show gastritis consider stopping PPI due to concern for bone loss with PPI use in ESRD. (2) Anemia Current Visit: Yes Status: Chronic Assessment and Plan: Secondary to ESRD in the setting of acute blood loss H/H down from yesterday at 8.3/27.6 Plan: -Continue to monitor, transfuse as necessary (3) Diabetes Current Visit: Yes Status: Chronic Assessment and Plan: IDDM BS elevated this AM Pt has been NPO for EGD/Colonoscopy Plan: -DM diet following procedure -Levemir 10 units daily -Low dose SSI -Accuchecks ACHS (4) End-stage renal disease Current Visit: Yes Status: Chronic Assessment and Plan: ESRD with HD M/W/F Nephrology has been consulted, appreciate their recommendations and management of HD. Plan -HD per nephrology (5) Hypothyroidism Current Visit: Yes Status: Chronic Assessment and Plan: Continue levothyroxine - Time Spent with Patient Total time spent is greater than 50% in coordination of care (as documented) at patient's floor/unit and/or counseling patient: Internal Medicine: Result - Labs CBC & Chem 7: 04/17/18 04:58 04/17/18 04:58 Labs: Short CBC 04/17/18 Range/Units 04:58 WBC 8.0 (4.3-11.1) K/mcL Hgb 8.3 L (11.5-15.4) g/dL Hct 27.6 L (35.3-44.9) % Plt Count 152 (140-400) K/mcL Neutrophils # 6.3 (1.6-8.9) K/mcL BMP 04/17/18 04:58 Sodium 132 L Potassium 4.1 Chloride 92 L Carbon Dioxide 25 BUN 28 H Creatinine 4.34 H Glucose 228 H Calcium 8.7 Liver Function 04/16/18 Range/Units 11:47 Total Bilirubin 1.0 (0.3-1.0) mg/dL Direct Bilirubin 0.4 H (0.0-0.2) mg/dL AST 26 (13-39) Units/L ALT 14 (7-52) Units/L Alkaline Phosphatase 139 H (34-104) Units/L Albumin 3.2 L (3.5-5.7) g/dL - ABG Interpretation ABG results: PT/INR, D-dimer PT 11.8 Seconds (9.4-12.1) 04/16/18 06:25 - Impressions Impressions Abdomen/Pelvis CT 04/16/18 05:00 IMPRESSION: 1. Findings consistent with acute congestive heart failure with a mild left pleural effusion. 2. Evidence of cirrhosis with mild ascites and splenomegaly. Diffuse body wall and peritoneal/retroperitoneal edema. 3. There is some mild nonspecific hyperdense material within the colon from level of the cecum through the sigmoid colon which could relate to acute hemorrhage. Extensive sigmoid colonic diverticulosis which could be a source of hemorrhage. 4. Cholelithiasis. D/ / 04/16/2018 08:47:56 Venkat Vargas MD / tkyer Interpreting Provider: Venkat Vargas MD Liver Ultrasound 04/16/18 20:30 IMPRESSION: Cholelithiasis with mild diffuse gallbladder wall thickening suggestive of acute cholecystitis, in the appropriate clinical setting. Hypoproteinemia or sequela of hepatocellular disease may contribute to diffuse gallbladder wall thickening. Small volume perihepatic fluid. Echogenic liver echotexture can be seen in fatty infiltration or hepatocellular disease. Macronodular liver contour suspicious but not definitive for underlying fibrosis. The findings were sent to the Radiology Results Communication Center at 12:52 am on 04/17/2018to be communicated to a licensed caregiver. D/ / 04/17/2018 07:07:30 Prateek Das / emperatriz Interpreting Provider: Prateek Das Consult Discharge Plan - Plan Referrals: NONE,PCP [Primary Care Provider] - Isabel Morales [Non-Partnered Physician] - 04/30/18 3:00 pm (Please follow up as schedule....) <Eros Aguillon - Last Filed: 04/17/18 12:49> Hospitalist Progress Note - Encounter Date of Encounter: 04/17/18 - Exam Vitals: Temp Pulse Resp BP Pulse Ox 97.7 F 96 18 118/70 99 04/17/18 07:30 04/17/18 11:51 04/17/18 11:51 04/17/18 11:51 04/17/18 11:51 - Assessment and Plan (1) Diabetes Current Visit: Yes Status: Chronic (2) End-stage renal disease Current Visit: Yes Status: Chronic (3) GI bleed Current Visit: Yes Status: Acute (4) Anemia Current Visit: Yes Status: Chronic (5) Hypothyroidism Current Visit: Yes Status: Chronic (6) DVT prophylaxis Current Visit: Yes Status: Acute - Time Spent with Patient Total time spent is greater than 50% in coordination of care (as documented) at patient's floor/unit and/or counseling patient: Internal Medicine: Result - Labs CBC & Chem 7: 04/17/18 04:58 04/17/18 04:58 Labs: Short CBC 04/17/18 Range/Units 04:58 WBC 8.0 (4.3-11.1) K/mcL Hgb 8.3 L (11.5-15.4) g/dL Hct 27.6 L (35.3-44.9) % Plt Count 152 (140-400) K/mcL Neutrophils # 6.3 (1.6-8.9) K/mcL BMP 04/17/18 04:58 Sodium 132 L Potassium 4.1 Chloride 92 L Carbon Dioxide 25 BUN 28 H Creatinine 4.34 H Glucose 228 H Calcium 8.7 Liver Function 04/16/18 Range/Units 11:47 Total Bilirubin 1.0 (0.3-1.0) mg/dL Direct Bilirubin 0.4 H (0.0-0.2) mg/dL AST 26 (13-39) Units/L ALT 14 (7-52) Units/L Alkaline Phosphatase 139 H (34-104) Units/L Albumin 3.2 L (3.5-5.7) g/dL - ABG Interpretation ABG results: PT/INR, D-dimer PT 11.8 Seconds (9.4-12.1) 04/16/18 06:25 - Impressions Impressions Liver Ultrasound 04/16/18 20:30 IMPRESSION: Cholelithiasis with mild diffuse gallbladder wall thickening suggestive of acute cholecystitis, in the appropriate clinical setting. Hypoproteinemia or sequela of hepatocellular disease may contribute to diffuse gallbladder wall thickening. Small volume perihepatic fluid. Echogenic liver echotexture can be seen in fatty infiltration or hepatocellular disease. Macronodular liver contour suspicious but not definitive for underlying fibrosis. The findings were sent to the Radiology Results Communication Center at 12:52 am on 04/17/2018to be communicated to a licensed caregiver. D/ / 04/17/2018 07:07:30 Prateek Das / emperatriz Interpreting Provider: Prateek Das - Attending Attestation I examined this patient and my medical decision-making was reviewed with the Resident Physician on 04/17/18. I agree with the documented findings, disposition and treatment plan as described except to the extent set forth below. Ms Villavicencio is currently admitted for acute GI bleed. She remains moderate to high risk due to potential for worsening clinical status. Ms Villavicencio was up during the night due to prep for colonoscopy. She is tired now. No fever or chills. Had some abd pain last night and US shows gallstones. She has had this worked up before and was deemed too high risk for surgery. Says it feels better now. Exam Alert Comfortable at this time Mucus membranes dry Heart not tachy currently Decreased breath sound Nontender abdomen currently Edema present I/P 1. Abd pain - improved today 2. GI bleed - EGD/colonoscopy today 3. Cholelithiasis - monitoring. Further diagnoses and plan as above. <Lise Saha - Last Filed: 04/17/18 10:51> (1) GI bleed Qualifiers: GI bleed type/associated pathology: melena Qualified Code(s): K92.1 - Melena (2) Anemia Qualifiers: Anemia type: iron deficiency Iron deficiency anemia type: chronic blood loss Qualified Code(s): D50.0 - Iron deficiency anemia secondary to blood loss (chronic) (3) Diabetes Qualifiers: Diabetes mellitus type: type 2 Diabetes mellitus long distance operator insulin use: with fci use Diabetes mellitus complication status: with hyperglycemia Qualified Code(s): E11.65 - Type 2 diabetes mellitus with hyperglycemia; Z79.4 - alf (current) use of insulin (5) Hypothyroidism Qualifiers: Hypothyroidism type: acquired Qualified Code(s): E03.9 - Hypothyroidism, unspecified <Eros Aguillon - Last Filed: 04/17/18 12:49> (1) Diabetes Qualifiers: Diabetes mellitus type: type 2 Diabetes mellitus long distance operator insulin use: with long distance operator use Diabetes mellitus complication status: with hyperglycemia Qualified Code(s): E11.65 - Type 2 diabetes mellitus with hyperglycemia; 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
--- NOTE | 2018-04-17 10:29 | Nephrology Progress Note ---
Date of Encounter: 04/17/18 Time of Encounter: 10:27 - Assessment and Plan (1) ESRD (end stage renal disease) on dialysis Current Visit: Yes Status: Acute Current regimen is MWF with Dr. Coreas in [place], [place]. HD completed yesterday without complication. Renal diet when not NPO Renal vitamins when not NPO Strict I/O Avoid nephrotoxins and renal dose all medications. (2) GI bleed Current Visit: Yes Status: Acute Hgb is 8.3 today, transfusions per primary. Plan for EGD and Colonoscopy today with GI. GI consulted by primary Qualifiers: GI bleed type/associated pathology: melena Qualified Code(s): K92.1 - Melena (3) Anemia Current Visit: Yes Status: Chronic See above. Qualifiers: Anemia type: iron deficiency Iron deficiency anemia type: chronic blood loss Qualified Code(s): D50.0 - Iron deficiency anemia secondary to blood loss (chronic) (4) Diabetes Current Visit: Yes Status: Chronic Per primary. 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 Awakens easily. Denies any shortness of breath or chest pain. Denies nausea, vomiting, or diarrhea. No acute events overnight. Objective - Vital Signs Vital signs: Vital Signs Temp Pulse Resp BP Pulse Ox 04/17/18 07:30 97.7 F 84 18 103/68 100 04/17/18 04:41 97.8 F 102 17 109/70 100 04/17/18 00:13 97.6 F 98 17 110/67 99 04/16/18 20:09 99 04/16/18 18:35 97.6 F 93 17 139/81 99 04/16/18 15:34 97.6 F 91 19 106/70 99 04/16/18 13:22 97.9 F 18 125/59 04/16/18 13:00 121/58 04/16/18 12:45 102/62 04/16/18 12:30 121/65 04/16/18 12:15 118/55 04/16/18 12:00 123/54 04/16/18 11:45 106/67 04/16/18 11:30 114/59 04/16/18 11:15 108/44 04/16/18 11:00 130/69 04/16/18 10:45 121/60 04/16/18 10:30 120/62 Intake and Output 04/16/18 04/17/18 04/17/18 23:59 07:59 15:59 Other: Stool Size Moderate Moderate Stool Consistency liquid loose soft liquid formed Stool Color Brown Brown # Voids 1 # Bowel Movements 2 # Bowel Movement Diapers 1 Weight 105.3 kg Blood Glucose* 85 210 Patient Weight 04/17/18 23:59 Weight 105.3 kg - General Appearance General appearance: Present: well-developed, well-nourished EENT: Present: ATNC, hearing intact, vision intact Neck: Present: supple Respiratory: Present: clear Cardiology: Present: no edema, normal S1, normal S2 Dialysis Vascular Access: Arteriovenous Fistula thrill: Yes bruit: Yes Gastrointestinal: Present: normoactive bowel sounds, no tenderness, no guarding Integumentary: Present: no rash, warm and dry Neurologic: Present: alert and oriented x3 Musculoskeletal: Present: no deformities, no erythema Psychiatric: Present: mood/affect appropriate, cooperative - Lab 04/17/18 04:58 04/17/18 04:58 Most recent lab results Calcium 8.7 mg/dL (8.6-10.3) 04/17/18 04:58 Consult Discharge Plan - Plan Referrals: NONE,PCP [Primary Care Provider] - Isabel Morales [Non-Partnered Physician] - 04/30/18 3:00 pm (Please follow up as schedule....)
--- NOTE | 2018-04-17 11:22 | Anesthesia Evaluation PreOp ---
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: Other (ARTHRITIS, HYPERURICEMIA) Other Medical History: Hepatic (CIRRHOSIS, NEWLY DIAGNOSED), Renal (ESRD ON HD MWF, LAST HD 04/16), Bleeding (GI BLEED, ANEMIA), Diabetes Type II (INSULIN DEPENDENT), Other (ARTHRITIS, OBESITY, BMI 26) Anesthesia History: No Prior Anesthetic Complications, Past Anesthesia Alcohol Use: none Drug use: none Medications and Allergies RX: Sodium Bicarbonate 650 mg PO BID 10/03/16 [History] RX: Allopurinol [Zyloprim 100 MG] 100 mg PO DAILY 08/10/17 [History] RX: Atorvastatin [Lipitor] 40 mg PO HS 08/10/17 [History] RX: Folic Acid 0.8 mg PO DAILY 08/10/17 [History] RX: Pantoprazole Sodium [Protonix] 40 mg PO DAILY 08/10/17 [History] RX: Aspirin Enteric Coated [Aspirin EC] 81 mg PO DAILY #30 tablet.dr 08/15/17 [Rx] RX: Lidocaine Patch [Lidoderm 5% patch] 1 each TP DAILY #15 adh..patch 08/15/17 [Rx] Acetaminophen [Tylenol Arthritis] 1,300 mg PO BID 04/16/18 [History] Insulin ASPART [Novolog Flexpen] 20 unit SQ BID 04/16/18 [History] Levothyroxine Sodium [Levoxyl] 125 mcg PO DAILY 04/16/18 [History] Midodrine HCl 10 mg PO AD 04/16/18 [History] Nitroglycerin [Nitrostat] 0.4 mg SL Q5MIN PRN 04/16/18 [History] Vitamin B Complex [Balanced B-50] 1 tab PO DAILY 04/16/18 [History] Allergy/AdvReac Type Severity Reaction Status Date / Time Amoxicillin [From Augmentin] AdvReac Vomiting Verified 03/10/18 19:50 clavulanic acid AdvReac Vomiting Verified 03/10/18 19:50 [From Augmentin] diphenhydramine AdvReac Hypotension Verified 03/10/18 21:31 [From Benadryl] - Meds/Allergy Pre-op Review Medications Reviewed: Yes Allergies Reviewed: Yes Beta Blockers on Current Med List: No Anesthesia Results - Labs 04/17/18 04:58 04/17/18 04:58 Laboratory Tests 04/16/18 04/16/18 04/17/18 06:25 11:47 04:58 PT 11.8 INR 1.0 APTT 22.5 L Calcium 8.7 Direct Bilirubin 0.4 H Indirect Bilirubin 0.6 AST 26 ALT 14 Alkaline Phosphatase 139 H Serum Total Protein 6.3 L Albumin 3.2 L Anesthesia Exam Vital Signs/O2 Sat/Glucose, Most Recent Temp Pulse Resp BP Pulse Ox 97.7 F 84 18 103/68 100 04/17/18 07:30 04/17/18 07:30 04/17/18 07:30 04/17/18 07:30 04/17/18 07:30 Blood Glucose* 210 Weight: 105 KG - BMI 36 NPO (# of Hours): >8 - Cardiac Rhythm: Irregular - Pulmonary Breath Sounds: bilateral Clear Respiratory Effort: Symmetrical Anesthesia Assess/Plan ASA Score: 4 Anesthetic Plan: MAC Monitoring Plan: Standard Monitors Recovery Plan: Other
[2018-04-17 11:26] LABS: AFP Tumor Marker Non-Pregnant 2 ng/mL (0-9)
[2018-04-17] MEDS: 0.9 % Sodium Chloride 500 ML IVC SCH ×2 (11:55→19:57)
[2018-04-17] MEDS ORDERED: Propofol 500 MG/50 ML INFUS..BTL ONE (12:40)
[2018-04-17] MEDS ORDERED: Lidocaine -MPF 2% 2 ML VIAL ONE (12:40)
[2018-04-17] MEDS ORDERED: Simethicone 40 MG/0.6 ML MLS IR ONE (12:49)
[2018-04-17] MEDS ORDERED: Tetracaine/Benzocaine/Butamben 1 SPRAY AEROSOL MM ONE (12:49)
[2018-04-17] MEDS ORDERED: *HR* PHENYLEPHRINE 1,000 MCG/10 ML SYRINGE IVP ONE (12:58)
[2018-04-17] MEDS ORDERED: Insulin LISPRO 300 UNITS/3 ML VIAL SQ SCH (21:00)
[2018-04-17] MEDS: Insulin DETEMIR 100 UNIT/ML X5UNITS SQ SCH (21:46)
[2018-04-18 05:28] LABS: Basophils % 0.5 %; Eosinophils # 0.2 K/mcL (0.0-0.6); Hematocrit 28.6 % (35.3-44.9); Hemoglobin 8.7 g/dL (11.5-15.4); Immature Granulocytes % 0.4 % (0-4); Lymphocytes # 0.6 K/mcL (0.6-4.6); Lymphocytes % 7.9 %; Mean Corpuscular HGB Conc 30.4 g/dL (31.6-35.5); Mean Corpuscular Hemoglobin 30.6 pg (28.0-33.3); Mean Corpuscular Volume 100.7 fL (83.0-100.0); Mean Platelet Volume 11.7 fL (9.4-12.4); Monocytes # 0.9 K/mcL (0.0-1.3); Monocytes % 11.5 %; Neutrophils # 6.2 K/mcL (1.6-8.9); Platelet Count 144 K/mcL (140-400); Red Blood Count 2.84 M/mcL (3.82-4.97); Red Cell Distribution Width 19.1 % (11.5-14.5); Segmented Neutrophils % 77.7 %
[2018-04-18 05:46] LABS: Calcium 8.8 mg/dL (8.6-10.3)
[2018-04-18] MEDS: Aspirin Enteric Coated 81 MG Tablet PO SCH (09:04)
[2018-04-18] MEDS: Pantoprazole 40 MG VIAL IVP SCH (09:04)
[2018-04-18] MEDS: Folic Acid 1 MG TABLET PO SCH (09:04)
[2018-04-18] MEDS: Insulin LISPRO 300 UNITS/3 ML VIAL SQ SCH ×3 (09:04→18:30)
--- NOTE | 2018-04-18 09:06 | Internal Med Progress Note ---
Hospitalist Progress Note - Encounter Date of Encounter: 04/18/18 Time of Encounter: 09:06 - Exam Vitals: Temp Pulse Resp BP Pulse Ox 98.3 F 88 16 112/70 100 04/18/18 07:32 04/18/18 07:32 04/18/18 07:32 04/18/18 07:32 04/18/18 07:32 - Assessment and Plan (1) Diabetes Current Visit: Yes Status: Chronic (2) End-stage renal disease Current Visit: Yes Status: Chronic (3) GI bleed Current Visit: Yes Status: Acute (4) Anemia Current Visit: Yes Status: Chronic (5) Hypothyroidism Current Visit: Yes Status: Chronic (6) DVT prophylaxis Current Visit: Yes Status: Acute - Time Spent with Patient Total time spent is greater than 50% in coordination of care (as documented) at patient's floor/unit and/or counseling patient: Internal Medicine: Result - Labs CBC & Chem 7: 04/18/18 04:54 04/18/18 04:54 Labs: Short CBC 04/18/18 Range/Units 04:54 WBC 8.0 (4.3-11.1) K/mcL Hgb 8.7 L (11.5-15.4) g/dL Hct 28.6 L (35.3-44.9) % Plt Count 144 (140-400) K/mcL Neutrophils # 6.2 (1.6-8.9) K/mcL BMP 04/18/18 04:54 Sodium 133 L Potassium 4.0 Chloride 93 L Carbon Dioxide 25 BUN 40 H Creatinine 6.03 H Glucose 281 H Calcium 8.8 - ABG Interpretation ABG results: PT/INR, D-dimer PT 11.8 Seconds (9.4-12.1) 04/16/18 06:25 Consult Discharge Plan - Plan Referrals: NONE,PCP [Primary Care Provider] - Isabel Morales [Non-Partnered Physician] - 04/30/18 3:00 pm (Please follow up as schedule....) (1) Diabetes Qualifiers: Diabetes mellitus type: type 2 Diabetes 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 insulin 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
--- NOTE | 2018-04-18 09:13 | Nephrology Progress Note ---
Addendum entered and electronically signed by Seamus Maher MD 04/18/18 13:00: I examined this patient and discussed the medical decision-making with DONN Castellon. I agree with the documented findings, disposition and treatment plan as described except to the extent set forth below. [place] for discharge from a renal standpoint. Continue her outpatient hemodialysis prescription. Original Note: Date of Encounter: 04/18/18 Time of Encounter: 09:10 - Assessment and Plan (1) ESRD (end stage renal disease) on dialysis Current Visit: Yes Status: Acute Current regimen is MWF with Dr. Coreas in [place], [place]. HD ordered for today. Renal diet Renal vitamins Strict I/O Avoid nephrotoxins and renal dose all medications. (2) GI bleed Current Visit: Yes Status: Acute Hgb is 8.7 today, transfusions per primary. EGD and Colonoscopy completed yesterday. GI consulted by primary Qualifiers: GI bleed type/associated pathology: melena Qualified Code(s): K92.1 - Melena (3) Anemia Current Visit: Yes Status: Chronic See above. Qualifiers: Anemia type: iron deficiency Iron deficiency anemia type: chronic blood loss Qualified Code(s): D50.0 - Iron deficiency anemia secondary to blood loss (chronic) (4) Diabetes Current Visit: Yes Status: Chronic Per primary. 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 Denies any shortness of breath or chest pain. Denies nausea, vomiting, or diarrhea. No acute events overnight. Upper/Lower scopes completed yesterday by GI. Objective - Vital Signs Vital signs: Vital Signs Temp Pulse Resp BP Pulse Ox 04/18/18 07:32 98.3 F 88 16 112/70 100 04/18/18 04:12 98.9 F 99 16 92/51 97 04/17/18 23:33 98.6 F 102 18 96/54 95 04/17/18 19:43 97.7 F 94 17 94/56 91 04/17/18 15:50 97.6 F 98 18 104/67 91 04/17/18 11:51 96 18 118/70 99 Intake and Output 04/17/18 04/18/18 04/18/18 23:59 07:59 15:59 Intake Total 1500 / 1500 240 / 240 Output Total 50 / 50 Balance 1450 / 1450 240 / 240 Intake: IV Fluids 1500 / 1500 0.9 % Sodium Chloride 500 ML @ 500 / 500 50 mls/hr IVC .Q10H TAMIA Rx#: [id number] Dextrose 5% 1,000 ML @ 100 mls/ 1000 / 1000 hr IVC .Q10H PRN Rx#:[id number] Oral 240 / 240 Output: Urine 50 / 50 Other: Percent of Meal Consumed 80% Stool Size Small Small Stool Consistency loose liquid liquid Stool Color Bright Red Blood Bright Red Blood Weight 106 kg Blood Glucose* 200 204 - General Appearance General appearance: Present: well-developed, well-nourished EENT: Present: ATNC, hearing intact, vision intact Neck: Present: supple Respiratory: Present: clear Cardiology: Present: edema (+2 pitting edema noted to bilat lower extremities, appears chronic. ), normal S1, normal S2 Dialysis Vascular Access: Arteriovenous Fistula thrill: Yes bruit: Yes Gastrointestinal: Present: normoactive bowel sounds, no tenderness, no guarding Integumentary: Present: no rash, warm and dry Neurologic: Present: alert and oriented x3 Musculoskeletal: Present: no deformities, no erythema Psychiatric: Present: mood/affect appropriate, cooperative - Lab 04/18/18 04:54 04/18/18 04:54 Most recent lab results Calcium 8.8 mg/dL (8.6-10.3) 04/18/18 04:54 Consult Discharge Plan - Plan Referrals: NONE,PCP [Primary Care Provider] - Isabel Morales [Non-Partnered Physician] - 04/30/18 3:00 pm (Please follow up as schedule....)
[2018-04-18] MEDS ORDERED: 0.9 % Sodium Chloride 250 ML IVC PRN (10:04)
[2018-04-18] MEDS ORDERED: 0.9 % Sodium Chloride 1,000 ML PRIME SCH (10:15)
[2018-04-18 10:46] LABS: ANA IgG by ELISA NONE DETECTED (None Detected); F-Actin (sm muscle) Ab IgG 27 Units (0-19)
--- NOTE | 2018-04-18 14:03 | Electrocardiograph Report ---
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
--- NOTE | 2018-04-18 17:15 | Discharge Summary ---
<Rene Copeland - Last Filed: 04/18/18 17:37> Orders not resulted at time of discharge: Pending orders 04/16/18 11:47 Hemochromatosis 3 Mutatations Routine 04/17/18 13:02 Surgical Pathology [PTH] Routine 04/17/18 13:27 Surgical Pathology [PTH] Routine 04/19/18 04:00 Basic Metabolic Panel AM 0400 CBC no Diff [Complete Blood Count w/o Diff] [HEME] AM 04004/20/18 04:00 Basic Metabolic Panel AM 0400 CBC no Diff [Complete Blood Count w/o Diff] [HEME] AM 04004/21/18 04:00 Basic Metabolic Panel AM 0400 CBC no Diff [Complete Blood Count w/o Diff] [HEME] AM 04004/22/18 04:00 Basic Metabolic Panel AM 0400 CBC no Diff [Complete Blood Count w/o Diff] [HEME] AM 04004/23/18 04:00 Basic Metabolic Panel AM 0400 CBC no Diff [Complete Blood Count w/o Diff] [HEME] AM 040 Date of Encounter: 04/18/18 Time of Encounter: 11:00 - Discharge Diagnosis (1) GI bleed Priority: Primary Status: Acute Qualifiers: GI bleed type/associated pathology: melena Qualified Code(s): K92.1 - Melena (2) Diabetes Priority: Secondary Status: Chronic Qualifiers: Diabetes mellitus type: type 2 Diabetes mellitus predatory animal exterminator insulin use: with snf use Diabetes mellitus complication status: with hyperglycemia Qualified Code(s): E11.65 - Type 2 diabetes mellitus with hyperglycemia; Z79.4 - terminal supervisor (current) use of insulin (3) End-stage renal disease Priority: Secondary Status: Chronic (4) Anemia Priority: Secondary Status: Chronic Qualifiers: Anemia type: iron deficiency Iron deficiency anemia type: chronic blood loss Qualified Code(s): D50.0 - Iron deficiency anemia secondary to blood loss (chronic) (5) Hypothyroidism Priority: Secondary Status: Chronic Qualifiers: Hypothyroidism type: acquired Qualified Code(s): E03.9 - Hypothyroidism, unspecified (6) DVT prophylaxis Priority: Secondary Status: Acute Hospital course: Ms. Villavicencio is a 77 year old female Discharge discussed with: patient - Time Spent with Patient Total time spent providing and/or coordinating discharge services: Less than 30 minutes (10 min) - Discharge Medications Prescriptions: Ondansetron ODT [Zofran ODT] 4 mg PO Q8H PRN #30 tab.rapdis PRN Reason: Nausea Home Medications: Sodium Bicarbonate 650 mg PO BID 10/03/16 [History] Allopurinol [Zyloprim 100 MG] 100 mg PO DAILY 08/10/17 [History] Atorvastatin [Lipitor] 40 mg PO HS 08/10/17 [History] Folic Acid 0.8 mg PO DAILY 08/10/17 [History] Pantoprazole Sodium [Protonix] 40 mg PO DAILY 08/10/17 [History] Aspirin Enteric Coated [Aspirin EC] 81 mg PO DAILY #30 tablet.dr 08/15/17 [Rx] Lidocaine Patch [Lidoderm 5% patch] 1 each TP DAILY #15 adh..patch 08/15/17 [Rx] Acetaminophen [Tylenol Arthritis] 1,300 mg PO BID 04/16/18 [History] Insulin ASPART [Novolog Flexpen] 20 unit SQ BID 04/16/18 [History] Levothyroxine Sodium [Levoxyl] 125 mcg PO DAILY 04/16/18 [History] Midodrine HCl 10 mg PO AD 04/16/18 [History] Nitroglycerin [Nitrostat] 0.4 mg SL Q5MIN PRN 04/16/18 [History] Vitamin B Complex [Balanced B-50] 1 tab PO DAILY 04/16/18 [History] Ondansetron ODT [Zofran ODT] 4 mg PO Q8H PRN #30 tab.rapdis 04/18/18 [Rx] Allergies/Adverse Reactions: Allergy/AdvReac Type Severity Reaction Status Date / Time Amoxicillin [From Augmentin] AdvReac Vomiting Verified 03/10/18 19:50 clavulanic acid AdvReac Vomiting Verified 03/10/18 19:50 [From Augmentin] diphenhydramine AdvReac Hypotension Verified 03/10/18 21:31 [From Benadryl] Date of admission: 04/16/18 15:17 Primary care physician: PCP NONE Consults: 04/15/18 23:39 Consult to Gastroenterology [CONS] Routine Consulting Provider: Gastroenterology Sandra Reason for Consult: 77 y/o F previously on apixaban presenting with signs of GI bleed and symptomatic anemia. Call Completed: No Consult to Nephrology [CONS] Routine Consulting Provider: Kidney Sandra/NISHA/LYNDA/LYN Reason for Consult: ESRD patient on M/W/F schedule admitted for lower GI bleeding who will need placement on schedule Call Completed: No 04/16/18 08:00 Consult to Dialysis [CONS] ONCE 04/16/18 10:29 Consult to Nurse Navigator [CONS] Routine Comment: hd 04/18/18 10:15 Consult to Dialysis [CONS] ONCE - Constitutional Vitals: Temp Pulse Resp BP Pulse Ox 97.7 F 88 18 105/49 99 04/18/18 14:20 04/18/18 11:40 04/18/18 14:20 04/18/18 17:05 04/18/18 11:40 Exam: . - Patient Status Disposition: Home, Self-Care Condition: Fair - Discharge Instructions Instructions: Ondansetron (By mouth) Follow Up With: NONE,PCP [Primary Care Provider] - Isabel Morales [Non-Partnered Physician] - 04/30/18 3:00 pm (Please follow up as schedule....) Forms: ED Satisfaction Letter - Attending Attestation I saw evaluated and examined this patient and my medical decision-making was reviewed with the Resident Physician, Henri Smith. I agree with the documented findings, disposition and treatment plan as described except to any changes set forth below. We independently had [id number] contact with the patient. Patient with a history of atrial fibrillation, cardiomyopathy, COPD, diabetes, ESRD on dialysis and chronic respiratory failure on 2 L O2 supplementation was hospitalized here with possible GI bleed. Patient was started on IV PPI and gastroenterology was consulted. Patient was evaluated by GI and recommended upper GI endoscopy and colonoscopy which she underwent yesterday. She was found to have 2 nonbleeding polyps which were removed and pathology is currently pending. Upper GI endoscopy showed portal gastropathy but no active bleeding. Her hemoglobin levels have stabilized and she has not had any further episodes of GI bleeding. She is clinically stable to be discharged home and will follow up with her PCP, weapons mechanic and GI doctor for further management. He will continue to take PPI at home. On exam, patient is awake and alert. Heart sounds are normal. Breath sounds are normal. Abdomen is soft, nontender. <Henri Smith - Last Filed: 04/18/18 18:20> - NOTES TO OUTPATIENT PROVIDER Notes to Outpatient Provider: Patient admitted with lower GI bleed and found to have diverticuloisi. She had two colon polypectomies, pathology results are pending. Continue to hold Eliquis until re-evaluated by PCP. Orders not resulted at time of discharge: Pending orders 04/16/18 11:47 Hemochromatosis 3 Mutatations Routine 04/17/18 13:02 Surgical Pathology [PTH] Routine 04/17/18 13:27 Surgical Pathology [PTH] Routine 04/19/18 04:00 Basic Metabolic Panel AM 0400 CBC no Diff [Complete Blood Count w/o Diff] [HEME] AM 04004/20/18 04:00 Basic Metabolic Panel AM 0400 CBC no Diff [Complete Blood Count w/o Diff] [HEME] AM 04004/21/18 04:00 Basic Metabolic Panel AM 0400 CBC no Diff [Complete Blood Count w/o Diff] [HEME] AM 0400 04/22/18 04:00 Basic Metabolic Panel AM 0400 CBC no Diff [Complete Blood Count w/o Diff] [HEME] AM 0400 04/23/18 04:00 Basic Metabolic Panel AM 0400 CBC no Diff [Complete Blood Count w/o Diff] [HEME] AM 0400 Date of Encounter: 04/18/18 Time of Encounter: 09:10 - Discharge Diagnosis (1) GI bleed Priority: Primary Status: Acute Qualifiers: GI bleed type/associated pathology: melena Qualified Code(s): K92.1 - Melena (2) Anemia Priority: Secondary Status: Chronic Qualifiers: Anemia type: iron deficiency Iron deficiency anemia type: chronic blood loss Qualified Code(s): D50.0 - Iron deficiency anemia secondary to blood loss (chronic) (3) End-stage renal disease Priority: Secondary Status: Chronic (4) Diabetes Priority: Secondary Status: Chronic Qualifiers: Diabetes mellitus type: type 2 Diabetes mellitus predatory animal exterminator insulin use: with snf use Diabetes mellitus complication status: with hyperglycemia Qualified Code(s): E11.65 - Type 2 diabetes mellitus with hyperglycemia; Z79.4 - terminal supervisor (current) use of insulin (5) Chronic respiratory failure with hypoxia, on home O2 therapy Priority: Secondary Status: Chronic (6) Hypothyroidism Priority: Secondary Status: Chronic Qualifiers: Hypothyroidism type: acquired Qualified Code(s): E03.9 - Hypothyroidism, unspecified (7) DVT prophylaxis Priority: Secondary Status: Acute Hospital course: Ms. Villavicencio is a 77 year old female with a history of ESRD on dialysis, atrial fibrillation who has home Eliquis was held, cardiomyopathy, COPD, diabetes, and chronic respiratory failure on 2 L O2 supplementation was hospitalized for GI bleed. Patient was started on IV PPI. GI performed colonoscopy which revealed two nonbleeding polyps which were removed and pathology is currently pending. Upper endoscopy showed portal gastropathy but no active bleeding. Her hemoglobin levels have stabilized and she has not had any further episodes of GI bleeding. She will continue to take PPI at home. Patient instructed to follow up with her PCP, weapons mechanic and GI doctor for further management. Patient instructed to resume Eliquis once cleared by PCP. Discharge discussed with: patient, family, nurse - Time Spent with Patient Total time spent providing and/or coordinating discharge services: Date of admission: 04/16/18 15:17 Primary care physician: PCP NONE Consults: 04/15/18 23:39 Consult to Gastroenterology [CONS] Routine Consulting Provider: Gastroenterology Sandra Reason for Consult: 77 y/o F previously on apixaban presenting with signs of GI bleed and symptomatic anemia. Call Completed: No Consult to Nephrology [CONS] Routine Consulting Provider: Kidney Sandra/NISHA/LYNDA/LYN Reason for Consult: ESRD patient on M/W/F schedule admitted for lower GI bleeding who will need placement on schedule Call Completed: No 04/16/18 08:00 Consult to Dialysis [CONS] ONCE 04/16/18 10:29 Consult to Nurse Navigator [CONS] Routine Comment: hd 04/18/18 10:15 Consult to Dialysis [CONS] ONCE Discharging clinician: Henri Smith Anticipated date of discharge: 04/18/18 - Constitutional Vitals: Temp Pulse Resp BP Pulse Ox 97.7 F 88 18 107/52 99 04/18/18 14:20 04/18/18 11:40 04/18/18 14:20 04/18/18 16:50 04/18/18 11:40 General appearance: Present: cooperative, A&O X 3, pleasant, no acute distress, answers questions appropriately Exam: awake - Head Head exam: Present: atraumatic, normocephalic - Eye Eye exam: Present: PERRL, conjuntiva pink, sclera anicteric Pupils: Present: PERRL - ENT ENT exam: Present: mucous membranes moist, normal oropharynx - Neck Neck exam general surgery: Present: supple, trachea midline. Absent: lymphadenopathy - Respiratory Respiratory exam: Present: CTAB. Absent: accessory muscle use, rales, rhonchi, wheezes - Cardiovascular Cardiovascular exam: Present: RRR, +S1, +S2. Absent: diastolic murmur, gallop, rubs, systolic murmur - GI/Abdominal GI/Abdominal exam: Present: normal bowel sounds, soft, no peritoneal signs. Absent: distended, guarding, tenderness - Extremities Exam Extremities exam: Present: warm, radial pulses palpable and symmetrical. Absent: calf tenderness, cyanotic, pedal edema - Back Exam Back exam: Present: normal inspection. Absent: paraspinal tenderness, tenderness - Neurological Exam Neurological exam: Present: alert, CN II-XII intact, oriented X3, no focal deficits. Absent: facial droop, speech deficit - Psychiatric Psychiatric exam: Present: normal affect, normal mood - Skin Skin exam: Present: dry, intact, normal color, warm - Patient Status Functional capacity at discharge: independent ambulation Overall status at discharge: patient is back to baseline - Diet and Activity Activity: increase activity as tolerated, resume usual activities as tolerated Diet: diabetic diet
[2018-04-18 18:31] VITALS: BP 112/58
[2018-04-19 22:04] LABS: C282Y Hemochromatosis Mutation NEGATIVE; H63D Hemochromatosis Mutation NEGATIVE; HFE Specimen Type WHOLE BLOOD; S65C Hemochromatosis Mutation NEGATIVE
[2018-04-20 09:50] LABS: Smooth Muscle Ab Titer IgG 1:40 (<1:20)
== END 2018-04-18 18:55 | disposition home or self-care (01) | DRG 391 ==
LOC: 2ANU 21:39 → EMEROOARM 21:39 → SUATTDRO 23:23 → 2ANU 23:59 → SUATTDRO 04-16 15:17
PROVIDERS: ADMIT Internal Medicine; ATTEND Internal Medicine
PROC: ENDOEBX (2018-04-17 13:45)